=== PATIENT | male | born 1955 | race Caucasian/White ===

== ENCOUNTER → 2016-06-10 | Outpatient (CLI) | payer OTHER ==
[~2016-06-10] MED LIST: AMB10 PO; ATOR-22 PO; FLUO20CA35 PO
[2016-06-10 12:58] LABS: ESTIMATED AVERAGE GLUCOSE 123 mg/dl; HA1C FLAG Normal (Normal)
[2016-06-10 15:10] LABS: BLOOD UREA NITROGEN 16 mg/dl (7-18); BUN/CREATININE RATIO 13.1 (10-20); CARBON DIOXIDE 27 mmol/L (21-32); CHLORIDE 101 mmol/L (98-107); GLUCOSE 115 mg/dl (70-99); POTASSIUM 3.9 mmol/L (3.5-5.1); SODIUM 138 mmol/L (136-145)
[2016-06-10 15:13] LABS: ALB/GLOB RATIO 1.1 (0.9-2); ALKALINE PHOSPHATASE 100 U/L (45-117); ALT/SGPT 13 U/L (12-78); AST/SGOT 11 U/L (15-37); CHOLESTEROL 170 mg/dl (0-200); CHOLESTEROL/HDL RATIO 5.2; HDL CHOLESTEROL 33 mg/dl; LDL CHOLESTEROL CALCULATED 107 mg/dl; TRIGLYCERIDES 151 mg/dl (0-150); VERY LOW DENSITY LIPOPROT CALC 30 mg/dl
== END | disposition home or self-care (01) ==
LOC: C.LABPVFM 07:34
PROVIDERS: ATTEND Family Medicine
DX: E78.5 Hyperlipidemia, unspecified (principal); I10 Essential (primary) hypertension; R73.01 Impaired fasting glucose; F41.8 Other specified anxiety disorders

== ENCOUNTER → 2016-06-14 | Outpatient (CLI) | payer OTHER ==
--- NOTE | 2016-06-14 14:49 | DIAGNOSTIC IMAGING REPORT ---
LUMBAR SPINE 5 VIEWS HISTORY: Pain FINDINGS: considerable degenerative change throughout the entire lumbar region. Vacuum discs are present at L5-S1. Degenerative change of the vertebral endplates. No evidence for compression deformity. Mild levoscoliosis. COMPARISON: None. IMPRESSION: Significant to severe degenerative change of the entire lumbar region. No acute compression deformity. Electronically signed by: Adiel Cid M.D. 06/14/2016 2:47 PM Dictated Date/Time: 06/14/2016 2:46 PM
== END | disposition home or self-care (01) ==
LOC: C.RADPV 14:38
PROVIDERS: ATTEND Family Medicine
DX: M54.9 Dorsalgia, unspecified (principal)

== ENCOUNTER → 2016-12-09 | Outpatient (CLI) | payer OTHER ==
[2016-12-09 13:19] LABS: ALT/SGPT 14 U/L (12-78); BLOOD UREA NITROGEN 14 mg/dl (7-18); BUN/CREATININE RATIO 12.9 (10-20); CALCIUM 8.7 mg/dl (8.5-10.1); CARBON DIOXIDE 29 mmol/L (21-32); CHLORIDE 103 mmol/L (98-107); CHOLESTEROL 155 mg/dl (0-200); GLUCOSE 110 mg/dl (70-99); POTASSIUM 3.6 mmol/L (3.5-5.1); SODIUM 139 mmol/L (136-145); TRIGLYCERIDES 161 mg/dl (0-150); VERY LOW DENSITY LIPOPROT CALC 32 mg/dl
[2016-12-09 13:22] LABS: ALKALINE PHOSPHATASE 104 U/L (45-117); AST/SGOT 12 U/L (15-37); CHOLESTEROL/HDL RATIO 4.4; HDL CHOLESTEROL 35 mg/dl; LDL CHOLESTEROL CALCULATED 88 mg/dl
== END | disposition home or self-care (01) ==
LOC: C.LABPVFM 08:21
PROVIDERS: ATTEND Family Medicine
DX: E78.5 Hyperlipidemia, unspecified (principal); R73.01 Impaired fasting glucose; F41.8 Other specified anxiety disorders

== ENCOUNTER 2018-06-09 07:48 | Inpatient (IN) ==
--- NOTE | 2018-05-27 09:22 | Anesthesiology Consultation ---
Date of Service May 27, 2018 Assessment & Plan (1) Encounter for pre-operative examination: Plan: -*POSSIBLE DIFFICULT INTUBATION BASED ON ANATOMY* Chart Review Chart Review: Acceptable Risk for Surgery and Patient seen in Pre Admission Testing Teaching & Discussion Instructed NPO after midnight before surgery, except medications with 15 cc of water. Medication instructions provided according to the PAT guidelines. History Surgery Operation Date: 06/09/18 09:50 Proposed Procedures p Left Robotic Laparoscopic Assisted Radical Nephrectomy and Nephrouretectomy - Rio Chou II, DO Height/Weight Height: 5 ft 7.5 in Weight: 117.9 kg Allergies Allergy/AdvReac Type Severity Reaction Status Date / Time No Known Allergies Allergy Mild Verified 04/06/18 09:03 Medications Home Medications Medication Instructions Recorded Confirmed Last Taken fluoxetine 20 mg PO QAM 03/19/18 05/25/18 04/06/18 07:30 simvastatin 20 mg PO DAILY 03/24/18 05/25/18 04/06/18 07:30 triamterene-hydrochlorothiazid 1 tab PO DAILY 03/24/18 05/25/18 04/05/18 08:00 Past Medical History Medical History Anxiety Hyperlipidemia Hypertension Morbid obesity Pulmonary emphysema Pulmonary nodules PCP MONITORING Sleep apnea CPAP Transitional cell carcinoma of kidney Past Family History Family History Aunt Family history of diabetes mellitus Past Surgical History Surgical History History of colonoscopy 2017 History of cystoscopy RECENT 04/06/18 History of herniorrhaphy CHILD Past Anesthesia History No Hx of Anesthesia Complications and No Family Hx of Anesthesia Complications History of PONV No Motion Sickness Screening History of Motion Sickness: No Social History Smoking Status: Light tobacco smoker tobacco type: cigarettes Smoking cigarettes per day: 4 CIGS PER DAY X SEVERAL YEARS Do You Dip or Chew Tobacco: No Hx Alcohol Use: No Alcohol type: hard liquor alcohol intake frequency: holidays/special occasions only Alcohol Intake Frequency Comment: 0 Hx Substance Use: No substance use type: does not use Exercise / Class Metabolic Activity II 4-5 Yardwork/Stairs/Walk up hill (no CP or SOB with stairs, does full flight daily) Review of Systems Pt denies any recent chest pain, shortness of breath, palpitations, cough, fever or URI. Physical Exam Vital Signs BP: 163/76 (pt is visibly anxious, did take HTN med this AM) P: 79bpm SPO2: 98% RA T: 98.6 F R: 16 ENMT Mouth: + poor dentition, + chipped teeth and + small oral opening; no dental restorations and no loose teeth Thyromental Distance: > or= 3.5 Finger Breadths (3.5) Mallampati Class: III Neck + thick neck; neck extension not limited Respiratory normal respiratory effort Auscultation: lungs clear to auscultation bilaterally Cardiovascular Rate/Rhythm: regular rate and regular rhythm Heart Sounds: no murmur Vessels: no carotid bruit Extremities: no edema Testing Electrocardiogram Date: 03/24/18 Findings: + SB @ (58) Chest X-Ray Date: 05/05/18 Minimally progressive micronodularity throughout both hemithoraces. Continued close CT follow-up is recommended to exclude developing metastatic change. Stress Test Date: 05/29/18 Type: exercise Nondiagnostic exercise stress EKG as target heart rate was not attained (pt reached 72% MPHR reached). Hypertensive response to exercise. Poor exercise tolerance. No arrhythmia; no chest pain reported. Other Testing CT LUNG 01/15/18 Cardiomegaly and emphysema. There is no airspace consolidation or pleural effusion. There are 3 small pulmonary nodules measuring up to 4 mm. Laboratory Results 05/27/18 09:58 05/27/18 10:58 Blood Type A Positive 05/27/18 09:58 Antibody Screen NEGATIVE 05/27/18 09:58 Urine Color Yellow 05/27/18 09:05 Urine Appearance Clear (Clear) 05/27/18 09:05 Urine pH >= 9.0 (4.5-7.5) H 05/27/18 09:05 Ur Specific [place] 1.012 (1.000-1.030) 05/27/18 09:05 Urine Protein Negative (Negative) 05/27/18 09:05 Urine Glucose (UA) Negative (Negative) 05/27/18 09:05 Urine Ketones Negative (Negative) 05/27/18 09:05 Urine Nitrite Negative (Negative) 05/27/18 09:05 Ur Leukocyte Esterase Negative (Negative) 05/27/18 09:05 02/06/19 09:05 Urine Culture - Final Urine,Clean Catch No growth - less than 1,000 colonies/mL.
--- NOTE | 2018-05-27 09:23 | PAT Medication Instructions ---
Medication Instructions Date of Service May 27, 2018 Home Medications Medication Instructions Recorded tamsulosin [Flomax] 0.4 mg PO DAILY #30 cap 04/06/18 fluoxetine 20 mg PO QAM simvastatin 20 mg PO DAILY triamterene-hydrochlorothiazide 1 tab PO DAILY DO NOT take the morning of surgery triamterene-hydrochlorothiazide 1 tab PO DAILY Take morning of surgery With a small sip of water, OTHERWISE NOTHING TO EAT OR DRINK AFTER MIDNIGHT: fluoxetine 20 mg PO QAM simvastatin 20 mg PO DAILY Other Notes If you have any questions please call us at [phone] or [phone] or [phone] or [phone]
[2018-05-27 10:19] LABS: Basophils # (auto) 0.03 K/uL (0-0.2); Basophils % (auto) 0.4 %; Eosinophils # (auto) 0.06 K/uL (0-0.5); Eosinophils % (auto) 0.8 %; Hematocrit (blood only) 43.2 % (42-52); Hemoglobin 14.2 g/dL (14.0-18.0); Immature Granulocytes # (auto) 0.01 K/uL (0.00-0.02); Immature Granulocytes % (auto) 0.1 %; Lymphocytes # (auto) 1.19 K/uL (1.2-3.4); Lymphocytes % (auto) 15.2 %; Mean Corpuscular Hgb Conc 32.9 g/dL (32-36); Mean Corpuscular Volume 93.7 fL (80-100); Monocytes # (auto) 0.53 K/uL (0.11-0.59); Monocytes % (auto) 6.8 %; Neutrophils # (auto) 6.03 K/uL (1.4-6.5); Neutrophils % (auto) 76.7 %; Platelet Count 262 K/uL (130-400); RDW Coefficient of Variation 13.7 % (11.5-14.5); RDW Standard Deviation 46.9 fL (36.4-46.3); Red Blood Count 4.61 M/uL (4.7-6.1); White Blood Count 7.85 K/uL (4.8-10.8)
[2018-05-27 10:20] LABS: Appearance Urine Clear (Clear); Bilirubin Urine Negative (Negative); Color Urine Yellow; Glucose Urine UA Negative (Negative); Ketones Urine Negative (Negative); Leukocyte Esterase Urine Negative (Negative); Nitrite Urine Negative (Negative); Protein Urine Negative (Negative); Specific Gravity Urine 1.012 (1.000-1.030); Urobilinogen Urine Negative (Negative); pH Urine >= 9.0 (4.5-7.5)
[2018-05-27 11:47] LABS: BUN Creatinine Ratio 12.4 (10-20); Calcium 9.6 mg/dl (8.5-10.1); Est GFR (African American) 75.7; Est GFR (Non-African American) 65.3
[~2018-06-09 07:48] MED LIST changes: -AMB10 PO; -ATOR-22 PO; +CEFAZOLIN 3000MG 65 ML IV SCH; -FLUO20CA35 PO; +LR 15ML/HR IV SCH
[2018-06-09] MEDS ORDERED: HYDROmorphone INJ 1 MG/ML SYRINGE IV PRN ×2 (08:45→08:51)
[2018-06-09] MEDS ORDERED: ATROPINE SULFATE 0.1 MG/ML 10ML SYR IV PRN ×2 (08:45→08:51)
[2018-06-09] MEDS ORDERED: fentaNYL citrate 100 MCG/2 ML VIAL IV PRN ×2 (08:45→08:51)
[2018-06-09] MEDS ORDERED: ePHEDrine sulfate 50 MG/ML AMP IV PRN ×2 (08:45→08:51)
[2018-06-09] MEDS ORDERED: ONDANSETRON INJ 2 MG/ML 2 ML VIAL IV PRN ×3 (08:45→17:44)
[2018-06-09] MEDS ORDERED: ACETAMINOPHEN 1000 MG/100 ML IV IV ONE (09:08)
[2018-06-09] MEDS ORDERED: PROPOFOL IV EMULSION 10 MG/ML 20 ML VIAL IV ONE (09:30)
[2018-06-09] MEDS ORDERED: DEXAMETHASONE SOD INJ 4 MG/ML VIAL ONE (09:30)
[2018-06-09] MEDS ORDERED: ONDANSETRON INJ 2 MG/ML 2 ML VIAL ONE (09:30)
[2018-06-09] MEDS ORDERED: LIDOCAINE HCL 2% 2 ML VIAL/AMP(20MG/ML) INFIL ONE (09:30)
[2018-06-09] MEDS ORDERED: KETOROLAC 30 MG/ML VIAL ONE (09:30)
[2018-06-09] MEDS ORDERED: MIDAZOLAM HCL 1 MG/ML 2ML VIAL ONE (09:30)
[2018-06-09] MEDS ORDERED: fentaNYL citrate 100 MCG/2 ML VIAL ONE ×2 (09:31→15:31)
[2018-06-09] MEDS ORDERED: KETAMINE HCL INJ 50 MG/ML 10 ML VIAL ONE (09:31)
[2018-06-09] MEDS ORDERED: HYDROmorphone INJ 2 MG/ML SYR/VIAL ONE (09:31)
[2018-06-09] MEDS ORDERED: SODIUM CHLORIDE 0.9% INJ 10 ML VIAL ONE (09:32)
--- NOTE | 2018-06-09 09:45 | History & Physical Bridge Note ---
Date of Service June 09, 2018 History & Physical Bridge Note I have examined the patient, reviewed the History & Physical and in the interval since the performance of the History & Physical I have noted the following changes of clinical significance: no changes noted
[2018-06-09] MEDS ORDERED: BUPIVACAINE 0.5 % 5 MG/1 ML MPF 30ML VIAL ONE (11:15)
[2018-06-09] MEDS ORDERED: GELATIN SPONGE SZ 100 ONE (11:15)
[2018-06-09] MEDS ORDERED: MANNITOL 25% 12.5 GM/50 ML VIAL IV ONE (11:20)
[2018-06-09] MEDS ORDERED: ePHEDrine sulfate 50 MG/ML AMP ONE (13:23)
[2018-06-09] MEDS ORDERED: SURGICEL ABSORB HEMOSTAT 2IN X 14IN TOP ONE ×2 (13:53→15:43)
[2018-06-09] MEDS ORDERED: SUCCINYLCHOLINE CHLORIDE 20 MG/ML 10 ML VIAL ONE (15:26)
--- NOTE | 2018-06-09 16:30 | Post Operative Brief Note ---
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 I was immediately available: during the entire case. Back up surgeon: was not required during procedure.
[2018-06-09] MEDS ORDERED: ROCURONIUM BROMIDE 10 MG/ML 5 ML VIAL ONE (16:51)
[2018-06-09] MEDS ORDERED: GLYCOPYRROLATE 0.2 MG/ML VIAL ONE (16:51)
[2018-06-09] MEDS ORDERED: NEOSTIGMINE METHYLSULFATE 5 MG/5 ML SYR ONE (16:51)
[2018-06-09 17:15] LABS: Basophils # (auto) 0.02 K/uL (0-0.2); Basophils % (auto) 0.1 %; Eosinophils # (auto) 0.01 K/uL (0-0.5); Eosinophils % (auto) 0.1 %; Hematocrit (blood only) 43.2 % (42-52); Immature Granulocytes # (auto) 0.07 K/uL (0.00-0.02); Immature Granulocytes % (auto) 0.4 %; Lymphocytes # (auto) 0.59 K/uL (1.2-3.4); Lymphocytes % (auto) 3.3 %; Mean Corpuscular Volume 94.3 fL (80-100); Mean Platelet Volume 10.4 fL (7.4-10.4); Monocytes # (auto) 0.22 K/uL (0.11-0.59); Monocytes % (auto) 1.2 %; Neutrophils # (auto) 16.86 K/uL (1.4-6.5); Neutrophils % (auto) 94.9 %; Platelet Count 246 K/uL (130-400); RDW Coefficient of Variation 13.6 % (11.5-14.5); RDW Standard Deviation 47.1 fL (36.4-46.3); Red Blood Count 4.58 M/uL (4.7-6.1); White Blood Count 17.77 K/uL (4.8-10.8)
--- NOTE | 2018-06-09 17:28 | Anesthesiology Progress Note ---
Date of Service June 09, 2018 Anesthesia Post Procedure Vital Signs Vital Signs: Temp Pulse Pulse Resp BP Pulse Ox 06/09/18 17:20 36.6 C 67 24 152/73 H 96 06/09/18 17:10 72 24 158/80 H 97 06/09/18 17:00 74 20 162/70 H 100 06/09/18 16:50 81 18 138/83 99 06/09/18 16:44 36.2 C L 84 17 169/81 H 100 06/09/18 08:20 36.4 C L 64 20 162/81 H 95 Notes Mental Status: alert / awake / arousable Patient Amnestic to Procedure: Yes Nausea / Vomiting: adequately controlled Pain: adequately controlled Airway Patency, RR, SpO2: stable & adequate BP & HR: stable & adequate Hydration State: stable & adequate Anesthetic Complications: no major complications apparent
--- NOTE | 2018-06-09 17:32 | Operative Report ---
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 Risks and benefits discussed at length. Description of Procedure The patient was brought to the operative suite and placed under general endotracheal intubation anesthesia in the supine position. The patient was transferred to the lateral position with the operative side up. At this point, the patient prepped and draped in the usual sterile fashion and a timeout was completed. Preoperative antibiotics of Ancef 3 grams had been given. EASTON's and SCD's were placed on the patient's lower extremities. A catheter was placed using sterile technique. With the time out completed the patient was flexed and the skin was marked. A small incision was made into the skin and subcutaneous tissues. A Varess needle was selected and placed. The needle was easily moved and it was irrigated and aspirated without any issues or concerns for placement. Insufflation commenced. Once insufflated, A camera port was placed. The cavity was insufflated to 15 mmHG. A laparoscopic camera was placed and the abdominal cavity inspected. No concerning features were noted. At this point, the skin was marked for port placement and 8mm working ports were placed. The skin was anesthetized down to fascia and an approx 1cm incision was made to place the 2 x 8mm ports. A 12mm assistant maintenance manager ports were also placed in similar fashion under direct visualization. The robot was positioned and docked. The camera was placed and all trocars were positioned under direct visualization. ANH Castillo was integral in port placement, camera utilization , and docking procedure. They remained in sterile attire and then proceeded to assist the remainder of the case. Dr. Javon Hogue was readily available for assistance during zheng portions of the proceeding procedure. At this point, I transitioned to the robotic console. The colon was mobilized medially to expose the retroperitoneum and the area assessed. Adhesions were freed to allow mobilization. A notable amount of adhesions were noted from the colon and were freed. These were dissected with blunt technique. Cautery was used to assist dissection and control bleeding. The retroperitoneal fat was assessed. The ureter and gonadal vein were identified. The ureter was isolated and dissection was taken superiorly. This was followed to the renal pelvis. The Renal Artery and Vein were then cleaned and exposed. The kidney was then further mobilized. The gonadal vein was in a difficult position and restricted access to the renal artery. Due to this, the gonadal vein was stapled with the EndoGIA stapler with a vascular staple load. The stapler was then placed across the renal vein and artery. This was then stapled and cut. The stumps were assessed and found to be clean without bleeding. The kidney was full assessed, mobilized, and all lateral, posterior, and superior attachments were freed. Surgicel hemostatic agent sheets were placed on the vessel stumps and on the perinephric tissue superiorly. No major bleeding or other issues were discovered. The dissection then was carried down along the ureter. The gonadal stump was ligated and cut. The ureter was freed to the crossing on the iliac vessels. Due to mobility, it was decided to undock the robot, place an additional 8 mm port laterally under direct visualization, and reposition to better access the pelvis. The ureter was dissected down to the insertion in the bladder muscularture. At this point, two hemolock clips were placed on the ureter. The ureter was dissected further with the clips aiding in retraction. The ureter was dissected clear and taken down into its insertion point. Under gentle retraction, the ureter was cut at the opening into the bladder. Bleeding was controlled with cautery. The area was assessed and no major bleeding or leakage was discovered. The specimen was then fully mobilized and freed. A Flat drain was placed through the lateral robot arm and the port was removed. It was positioned in the gutter along the lateral wall and down posterior to the bladder. This was secured with a nylon 3-0 suture. The entire dissection space was inspected one final time. No bleeding or injuries or areas of concern were noted. No tumor, lymph nodes, or other concerning features were noted. At this point, the robot was undocked and moved away from the patient. The port sites were all assessed laparoscopically. The two 12 mm ports in the perimedian region were further anesthestized. These incisions were then connected to create a perimedian incision which was opened further exposing fascia which was then opened in order to removed the specimen. The anterior and posterior rectus sheath fascia were opened with the rectus muscles gently retracted medially. The specimen was sent for pathologic analysis. All counts were correct x 2 and no major bleeding or other issues were discovered. A running 1-0 Vicryl suture was used to close the peritoneum and posterior sheath. A 1-0 PDS suture was used to close the anterior rectus sheath fascia. A vicryl suture was used to close the subcutaneous fat in a running fashion. The skin at each site was closed with a running Monocryl suture. The area was cleaned and glue placed on each incision. The patient was cleaned and bandaged. He was moved back into the supine position The patient was cleaned, aroused from anesthesia, and transferred to the pacu in stable condition having tolerated the procedure well with no complications. I was present and participated in all aspects of the procedure. All counts were correct x 2. Kenneth and ANH Hawkins were critical in the portions as mentioned above and during closing. I attest to the content of the Intraoperative Record and any orders documented therein. Any exceptions are noted below.
[2018-06-09 17:33] LABS: BUN Creatinine Ratio 13.9 (10-20); Calcium 8.3 mg/dl (8.5-10.1); Creatinine Clr Calc Pharmacy 63.2 ml/min; Est GFR (African American) 56.4; Est GFR (Non-African American) 48.7; Potassium 3.7 mmol/L (3.5-5.1)
[2018-06-09 17:36] LABS: Mean Corpuscular Hgb Conc 32.4 g/dL (32-36)
[2018-06-09] MEDS ORDERED: MoRPHine SULFATE 4 MG/ML 1 ML CARP\\VIAL IV PRN (17:44)
[2018-06-09] MEDS ORDERED: ACETAMINOPHEN 1,000 MG/100 ML VIAL IV PRN (17:44)
[2018-06-09] MEDS: LACTATED RINGER'S 1,000 ML IV SCH (18:21)
[2018-06-09] MEDS: OXYCODONE HCL IR 5 MG TAB (IMMEDIATE RELEASE) PO PRN (19:33)
[2018-06-09] MEDS: CEFAZOLIN 2000MG 2,000 MG/15 ML SYR IV SCH (20:16)
[2018-06-09] MEDS: FAMOTIDINE 20 MG in SYRINGE 3 ML IV SCH (20:16)
[2018-06-09] MEDS: HEPARIN SOD 5,000 UNIT/0.5 ML VIAL SQ SCH (20:27)
[2018-06-09] MEDS: DOCUSATE SODIUM 100 MG CAP PO SCH (20:31)
[2018-06-10] MEDS: LACTATED RINGER'S 1,000 ML IV SCH ×3 (01:17→17:09)
[2018-06-10] MEDS: OXYCODONE HCL IR 5 MG TAB (IMMEDIATE RELEASE) PO PRN ×4 (01:31→23:29)
[2018-06-10] MEDS: CEFAZOLIN 2000MG 2,000 MG/15 ML SYR IV SCH ×2 (03:18→12:21)
[2018-06-10 07:54] LABS: Basophils # (auto) 0.01 K/uL (0-0.2); Basophils % (auto) 0.1 %; Eosinophils # (auto) 0.01 K/uL (0-0.5); Eosinophils % (auto) 0.1 %; Hematocrit (blood only) 38.4 % (42-52); Hemoglobin 12.5 g/dL (14.0-18.0); Immature Granulocytes # (auto) 0.04 K/uL (0.00-0.02); Immature Granulocytes % (auto) 0.3 %; Lymphocytes # (auto) 0.87 K/uL (1.2-3.4); Lymphocytes % (auto) 6.7 %; Mean Corpuscular Hgb Conc 32.6 g/dL (32-36); Mean Platelet Volume 10.5 fL (7.4-10.4); Monocytes # (auto) 0.96 K/uL (0.11-0.59); Monocytes % (auto) 7.4 %; Neutrophils # (auto) 11.16 K/uL (1.4-6.5); Neutrophils % (auto) 85.4 %; Platelet Count 206 K/uL (130-400); RDW Coefficient of Variation 13.4 % (11.5-14.5); RDW Standard Deviation 46.5 fL (36.4-46.3); Red Blood Count 4.04 M/uL (4.7-6.1); White Blood Count 13.05 K/uL (4.8-10.8)
[2018-06-10 08:06] LABS: BUN Creatinine Ratio 13.7 (10-20); Creatinine Clr Calc Pharmacy 63.3 ml/min; Est GFR (African American) 56.9; Est GFR (Non-African American) 49.1; Potassium 3.7 mmol/L (3.5-5.1)
[2018-06-10] MEDS: FAMOTIDINE 20 MG in SYRINGE 3 ML IV SCH (08:18)
[2018-06-10] MEDS: TRIAMTERENE/HCTZ 37.5/25MG TAB PO SCH (08:20)
[2018-06-10] MEDS: SIMVASTATIN 20 MG TAB PO SCH (08:21)
[2018-06-10] MEDS: FLUOXETINE HCL 20 MG CAP PO SCH (08:21)
[2018-06-10] MEDS: HEPARIN SOD 5,000 UNIT/0.5 ML VIAL SQ SCH ×2 (08:26→20:59)
[2018-06-10] MEDS: DOCUSATE SODIUM 100 MG CAP PO SCH ×2 (08:44→21:03)
--- NOTE | 2018-06-10 09:11 | Urology Progress Note ---
Date of Service June 10, 2018 Assessment & Plan (1) Left renal mass: 62yo M s/p Left Robotic Laparoscopic Assisted Radical Nephrouretectomy VSS, afebrile. Doing very well this AM No major issues overnight, pain controlled Labs reviewed - Cr slightly elevated as expected, stable. - H/H stable Discussed with krystal Bill to increase diet to regular. Maintain CHET, likely d/c tomorrow. Maintain hsieh catheter. Continue IVFs for now. Encourage ambulation and use of IS. Pt progressing very well, likely will d/c home tomorrow. Attending Note: doing well. OOB and ambulating. Tolerating diet. Low CHET output. Tolerating catheter. Subjective 62yo M s/p POD #1 p Left Robotic Laparoscopic Assisted Radical Nephrouretectomy. Patient doing very well this AM. Denies major issues overnight. Having some soreness but overall pain controlled with PO options. Tolerated clear diet, states he is hungry. Denies f/c/n/v. Hsieh intact, draining clear yellow. CHET with minimal output overnight. Review of Systems All systems reviewed & are unremarkable except as noted in HPI & below Physical Exam 2 Vital Signs (Past 24 Hours): Last Vital Signs Temp 36.4 C L 06/10/18 07:58 Pulse 71 06/10/18 07:58 Resp 16 06/10/18 07:58 BP 139/78 06/10/18 07:58 Pulse Ox 97 06/10/18 07:58 Physical Exam: A&Ox3 RRR abd soft, nondistended. Abdominal incisions well approximated, no drainage, redness. CHTE draining small amount bloody. hsieh draining clear yellow Results & Data Laboratory Results Laboratory Results - last 48 hr 06/09/18 06/09/18 06/10/18 17:06 17:06 07:24 WBC 17.77 H 13.05 H RBC 4.58 L 4.04 L Hgb 14.0 12.5 L Hct 43.2 38.4 L MCV 94.3 95.0 MCH 30.6 30.9 MCHC 32.4 32.6 RDW Std Deviation 47.1 H 46.5 H RDW Coeff of Kate 13.6 13.4 Plt Count 246 206 MPV 10.4 10.5 H Immature Gran % (Auto) 0.4 0.3 Neut % (Auto) 94.9 85.4 Lymph % (Auto) 3.3 6.7 Treasure % (Auto) 1.2 7.4 Eos % (Auto) 0.1 0.1 Baso % (Auto) 0.1 0.1 Immature Gran # (Auto) 0.07 H 0.04 H Neut # (Auto) 16.86 H 11.16 H Lymph # (Auto) 0.59 L 0.87 L Treasure # (Auto) 0.22 0.96 H Eos # (Auto) 0.01 0.01 Baso # (Auto) 0.02 0.01 Sodium 135 L Potassium 3.7 Chloride 103 Carbon Dioxide 26 Anion Gap 6.0 BUN 21 H Creatinine 1.53 H Est Cr Clr Drug Dosing 63.2 Est GFR ( Amer) 56.4 Est GFR (Non-Af Amer) 48.7 BUN/Creatinine Ratio 13.9 Glucose 141 H Calcium 8.3 L 06/10/18 07:24 WBC RBC Hgb Hct MCV MCH MCHC RDW Std Deviation RDW Coeff of Kate Plt Count MPV Immature Gran % (Auto) Neut % (Auto) Lymph % (Auto) Treasure % (Auto) Eos % (Auto) Baso % (Auto) Immature Gran # (Auto) Neut # (Auto) Lymph # (Auto) Treasure # (Auto) Eos # (Auto) Baso # (Auto) Sodium 133 L Potassium 3.7 Chloride 103 Carbon Dioxide 22 Anion Gap 8.0 BUN 21 H Creatinine 1.52 H Est Cr Clr Drug Dosing 63.3 Est GFR ( Amer) 56.9 Est GFR (Non-Af Amer) 49.1 BUN/Creatinine Ratio 13.7 Glucose 98 Calcium 8.0 L
--- NOTE | 2018-06-10 10:28 | Anesthesiology Progress Note ---
Date of Service June 10, 2018 Anesthesia Post Procedure Vital Signs Vital Signs: Temp Pulse Pulse Resp BP Pulse Ox 06/10/18 07:58 36.4 C L 71 16 139/78 97 06/10/18 03:15 37.4 C 70 16 145/76 H 97 06/10/18 00:08 37.5 C 77 18 126/75 98 06/09/18 20:30 36.4 C L 81 16 148/84 H 98 06/09/18 19:30 37.4 C 70 18 129/76 94 06/09/18 18:30 86 16 114/72 95 06/09/18 18:00 36.6 C 70 18 129/75 93 06/09/18 17:30 36.7 C 74 16 147/74 H 97 06/09/18 17:20 36.6 C 67 24 152/73 H 96 06/09/18 17:10 72 24 158/80 H 97 06/09/18 17:00 74 20 162/70 H 100 06/09/18 16:50 81 18 138/83 99 06/09/18 16:44 36.2 C L 84 17 169/81 H 100 Pain Intensity Left Abdomen: Pain Intensity: 4 Notes Mental Status: alert / awake / arousable Patient Amnestic to Procedure: Yes Nausea / Vomiting: adequately controlled Pain: adequately controlled Airway Patency, RR, SpO2: stable & adequate BP & HR: stable & adequate Hydration State: stable & adequate Anesthetic Complications: no major complications apparent and Pt Satisfied with anesthetic care
[2018-06-10] MEDS: FAMOTIDINE 20 MG TAB PO SCH (20:58)
[2018-06-11] MEDS: LACTATED RINGER'S 1,000 ML IV SCH (01:11)
[2018-06-11 07:55] LABS: Basophils # (auto) 0.02 K/uL (0-0.2); Basophils % (auto) 0.2 %; Eosinophils # (auto) 0.04 K/uL (0-0.5); Eosinophils % (auto) 0.4 %; Hematocrit (blood only) 35.8 % (42-52); Hemoglobin 11.7 g/dL (14.0-18.0); Immature Granulocytes # (auto) 0.02 K/uL (0.00-0.02); Immature Granulocytes % (auto) 0.2 %; Lymphocytes # (auto) 1.04 K/uL (1.2-3.4); Lymphocytes % (auto) 10.7 %; Mean Corpuscular Hgb Conc 32.7 g/dL (32-36); Mean Corpuscular Volume 93.5 fL (80-100); Mean Platelet Volume 10.2 fL (7.4-10.4); Monocytes # (auto) 0.75 K/uL (0.11-0.59); Monocytes % (auto) 7.7 %; Neutrophils # (auto) 7.85 K/uL (1.4-6.5); Neutrophils % (auto) 80.8 %; Platelet Count 202 K/uL (130-400); RDW Coefficient of Variation 13.5 % (11.5-14.5); RDW Standard Deviation 46.1 fL (36.4-46.3); Red Blood Count 3.83 M/uL (4.7-6.1); White Blood Count 9.72 K/uL (4.8-10.8)
[2018-06-11 08:25] LABS: BUN Creatinine Ratio 10.8 (10-20); Est GFR (Non-African American) 42.3; Potassium 3.7 mmol/L (3.5-5.1)
[2018-06-11] MEDS: HEPARIN SOD 5,000 UNIT/0.5 ML VIAL SQ SCH (08:54)
[2018-06-11] MEDS: SIMVASTATIN 20 MG TAB PO SCH (08:55)
[2018-06-11] MEDS: FAMOTIDINE 20 MG TAB PO SCH (08:55)
[2018-06-11] MEDS: TRIAMTERENE/HCTZ 37.5/25MG TAB PO SCH (08:55)
[2018-06-11] MEDS: FLUOXETINE HCL 20 MG CAP PO SCH (08:55)
[2018-06-11] MEDS: DOCUSATE SODIUM 100 MG CAP PO SCH (09:37)
[2018-06-11] MEDS: OXYCODONE HCL IR 5 MG TAB (IMMEDIATE RELEASE) PO PRN (10:24)
--- NOTE | 2018-06-11 13:12 | Urology Progress Note ---
Date of Service June 11, 2018 Assessment & Plan (1) Left renal mass: 62yo M s/p Left Robotic Laparoscopic Assisted Radical Nephrouretectomy VSS, temp slightly elevated not unexpected. Doing very well this AM, ready to go home No major issues overnight, pain controlled with oxyIR Labs reviewed - Cr elevated to 1.52- 1.72 today as expected - H/H stable Okay to d/c marc prior to discharge. Maintain hsieh catheter, voiding trial to be arranged by our offfice. Continue use of IS at home . Dr. Chou also in to see patient today. All questions answered. Family at bedside. Pt progressing well, ready to d/c home. Subjective 62yo M s/p POD 2 p Left Robotic Laparoscopic Assisted Radical Nephrouretectomy. Patient doing well today, sitting up in chair. Denies major issues overnight. Has been ambulating well. tolerating regular diet, has not passed gas as of yet. Denies f/c/n/v. Hsieh intact, draining clear yellow. MARC with minimal output overnight. Physical Exam 2 Vital Signs (Past 24 Hours): Last Vital Signs Temp 37.8 C H 06/11/18 07:04 Pulse 76 06/11/18 07:04 Resp 19 06/11/18 07:04 BP 149/71 H 06/11/18 07:04 Pulse Ox 91 06/11/18 07:04 Physical Exam: A&Ox3 RRR abd soft, incisions tender. incisions well approximated, no drainage. hsieh draining clear yellow Results & Data Laboratory Results Laboratory Results - last 48 hr 06/09/18 06/09/18 06/10/18 17:06 17:06 07:24 WBC 17.77 H 13.05 H RBC 4.58 L 4.04 L Hgb 14.0 12.5 L Hct 43.2 38.4 L MCV 94.3 95.0 MCH 30.6 30.9 MCHC 32.4 32.6 RDW Std Deviation 47.1 H 46.5 H RDW Coeff of Kate 13.6 13.4 Plt Count 246 206 MPV 10.4 10.5 H Immature Gran % (Auto) 0.4 0.3 Neut % (Auto) 94.9 85.4 Lymph % (Auto) 3.3 6.7 Ransom % (Auto) 1.2 7.4 Eos % (Auto) 0.1 0.1 Baso % (Auto) 0.1 0.1 Immature Gran # (Auto) 0.07 H 0.04 H Neut # (Auto) 16.86 H 11.16 H Lymph # (Auto) 0.59 L 0.87 L Ransom # (Auto) 0.22 0.96 H Eos # (Auto) 0.01 0.01 Baso # (Auto) 0.02 0.01 Sodium 135 L Potassium 3.7 Chloride 103 Carbon Dioxide 26 Anion Gap 6.0 BUN 21 H Creatinine 1.53 H Est Cr Clr Drug Dosing 63.2 Est GFR ( Amer) 56.4 Est GFR (Non-Af Amer) 48.7 BUN/Creatinine Ratio 13.9 Glucose 141 H Calcium 8.3 L 06/10/18 06/11/18 06/11/18 07:24 07:33 07:33 WBC 9.72 RBC 3.83 L Hgb 11.7 L Hct 35.8 L MCV 93.5 MCH 30.5 MCHC 32.7 RDW Std Deviation 46.1 RDW Coeff of Kate 13.5 Plt Count 202 MPV 10.2 Immature Gran % (Auto) 0.2 Neut % (Auto) 80.8 Lymph % (Auto) 10.7 Ransom % (Auto) 7.7 Eos % (Auto) 0.4 Baso % (Auto) 0.2 Immature Gran # (Auto) 0.02 Neut # (Auto) 7.85 H Lymph # (Auto) 1.04 L Ransom # (Auto) 0.75 H Eos # (Auto) 0.04 Baso # (Auto) 0.02 Sodium 133 L 135 L Potassium 3.7 3.7 Chloride 103 103 Carbon Dioxide 22 27 Anion Gap 8.0 5.0 BUN 21 H 19 H Creatinine 1.52 H 1.72 H Est Cr Clr Drug Dosing 63.3 56.0 Est GFR ( Amer) 56.9 49.0 Est GFR (Non-Af Amer) 49.1 42.3 BUN/Creatinine Ratio 13.7 10.8 Glucose 98 101 H Calcium 8.0 L 8.0 L
--- NOTE | 2018-06-19 12:10 | Discharge Summary ---
Date of Service June 19, 2018 Admission HPI Per Admitting Provider See Admission H&P Admission Exam Per Admitting Provider See H&P Principal Diagnosis [place] UCC Discharge Exam Constitutional + obese ENMT Mouth: + poor dentition, + chipped teeth and + small oral opening; no dental restorations and no loose teeth Mallampati Class: III Neck normal visual inspection and + thick neck; neck extension not limited Respiratory normal respiratory effort Auscultation: lungs clear to auscultation bilaterally Cardiovascular Rate/Rhythm: regular rate and regular rhythm Heart Sounds: no murmur Vessels: no carotid bruit Extremities: no edema Psychiatric Orientation: alert and oriented x 3 Discharge Data Allergies Allergy/AdvReac Type Severity Reaction Status Date / Time No Known Allergies Allergy Mild Verified 06/09/18 08:12 Procedures Performed Operation Date: 06/09/18 09:50 Actual Procedures p Left Robotic Laparoscopic Assisted Radical Nephrouretectomy(Left) - Rio Chou II, DO Hospital Course (1) Left renal mass: 62yo M s/p Left Robotic Laparoscopic Assisted Radical Nephrouretectomy VSS, temp slightly elevated not unexpected. Doing very well this AM, ready to go home No major issues overnight, pain controlled with oxyIR Labs reviewed - Cr elevated to 1.52- 1.72 today as expected - H/H stable Okay to d/c marc prior to discharge. Maintain hsieh catheter, voiding trial to be arranged by our offfice. Continue use of IS at home . Dr. Chou also in to see patient today. All questions answered. Family at bedside. Pt progressing well, ready to d/c home. 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 Do not pick at surgical glue. No tub baths/soaking Sexual Activity: Wait until after follow-up appointment Exercise/Sports: Rest today and Wait until after follow-up appointment Driving/Machine Use: Resume 1 day after discharge Driving/Machine Use Comment: Please do not drive while taking perscription pain medication. Non-emergency contact: Urologist Call non-emergency contact if: you have any medication questions, your pain is not controlled, your pain is concerning for you, your temperature is above 101, your wound has increased redness, your wound has increased drainage and your wound pain has increased Follow-up/Referrals: Ileana Torres MD [Primary Care Provider] - Diet: Regular Addtl Provider Instructions: Please feel free to contact our office with any questions, concerns or need to change your appointment time at [phone]. Please do not drink alcohol or drive while taking prescription pain medication. - We recommend you take a stool softener (colace) twice a day for the first two weeks to prevent straining. - Okay to take as needed after that timeframe. Please clean around your hsieh catheter insertion site twice a day with mild soap (dial or dove) and fresh washcloth. Your catheter removal appointment is scheduled for 06/16 at 11:30AM. Prescriptions: New oxycodone-acetaminophen [Percocet] 5-325 mg tablet 2 tab PO TID PRN (Reason: pain) Qty: 20 RF: 0 docusate sodium [Colace] 100 mg capsule 100 mg PO TID Qty: 60 RF: 0 Continued fluoxetine 20 mg Capsule 20 mg PO QAM RF: 0 simvastatin 20 mg Tablet 20 mg PO DAILY RF: 0 triamterene-hydrochlorothiazid 37.5-25 mg Tablet 1 tab PO DAILY RF: 0 Stand-Alone Forms: [facility]/Other Patient Handouts: Nephroureterectomy Laparoscopic, Catheter Indwelling Urinary Dc, Leg Bag Care Dc Discharge Orders: Discharge Order (Routine); Ordered 06/11/18 Ordered By: Melany Hawkins Admission Data Admit Date/Time: 06/09/18 16:03 Attending Provider: Rio Chou II Admit Provider: Rio Chou II Primary Care Provider: Ileana Torres Other Providers: Jose López ; [address] ; Sherman Guerra ; Lindsey Muse ; Edmar Benson ; Melany Hawkins ; April Wells ; Raymundo Calhoun Service: Surgical Services Other Interventions: Discharge Summary Assessment (RN) Last Done: 06/11/18 13:13 DC Date/Time DO NOT enter until pt leaves facility: 06/11/18 14:00
== END 2018-06-11 14:00 | disposition home or self-care (01) | DRG 658 ==
LOC: ASU 07:48 → 3W 16:03
DX: I10 Essential (primary) hypertension; E66.9 Obesity, unspecified; E78.5 Hyperlipidemia, unspecified; Z80.8 Family history of malignant neoplasm of other organs or systems; G47.30 Sleep apnea, unspecified; Z68.35 Body mass index [BMI] 35.0-35.9, adult; N40.0 Benign prostatic hyperplasia without lower urinary tract symptoms; Z79.899 Other long term (current) drug therapy; F17.210 Nicotine dependence, cigarettes, uncomplicated; F41.8 Other specified anxiety disorders; C64.2 Malignant neoplasm of left kidney, except renal pelvis

== ENCOUNTER 2022-10-01 16:39 | Inpatient (IN) ==
[2022-10-01] MEDS ORDERED: SODIUM CHLORIDE 0.9% 500 ML IV ONE (17:13)
--- NOTE | 2022-10-01 17:13 | Emergency Department Note ---
Impression & Plan Acute hyponatremia, AMS (altered mental status), Weakness ED Provider Note NAME: RADHA REED AGE: 66 SEX: M : 1955 ARRIVES VIA: Walk-In INFORMANT: Patient ED PROVIDER(S): Oleg Muhammad DO CHIEF COMPLAINT: weakness HPI: Patient is a 66-year-old male who presents ER for weakness. He notes this has been present for the past several days. He has been having some nausea and trouble urinating since this past Friday. He notes he feels like he has to really force himself to urinate. Once he is able to start his stream and feels as though he completely empties. He denies any headache or change in vision. No chest pain or shortness of breath. He does note that he feels a little foggy. No dysuria urgency or frequency. No other exacerbating or remitting f actors. PAST MEDICAL HISTORY:See Below PAST SURGICAL HISTORY:See Below FAMILY HISTORY:See Below SOCIAL HISTORY:See Below HOME MEDICATIONS:See Below ALLERGIES:See Below VITALS:See Below PHYSICAL EXAMINATION: GENERAL: Sitting up in bed, alert, well appearing, well nourished, no distress, non-toxic EYE EXAM: normal conjunctiva. PERRL and EOM's intact. OROPHARYNX: no exudate, no erythema, lips, buccal mucosa, and tongue normal and mucous membranes are moist NECK: supple, no nuchal rigidity, no adenopathy, non-tender LUNGS: Clear to auscultation. Normal chest wall mechanics HEART: no murmurs, S1 normal and S2 normal ABDOMEN: abdomen soft, non-tender, normo-active bowel sounds, no masses, no rebound or guarding. UPPER EXTREMITIES: upper extremities are grossly normal. LOWER EXTREMITIES: No pitting edema. NEURO EXAM: Normal sensorium, cranial nerves II-XII intact, normal speech, no weakness of arms, no weakness of legs. No drift. Finger to nose intact. Gross sensation intact. MEDICAL DECISION MAKING: Patient is a 66-year-old male who presents ER for above-stated complaint. IV was established blood work is obtained. External records were reviewed. History is obtained from the patient and who is also at bedside. She notes that he has been intermittently confused. Upon presentation he is completely awake alert oriented following commands. IV was established blood work is obtained. Labs show mild leukocytosis of 13,000. Hemoglobin of 12. BMP with a significant hyponatremia at 110. Chloride slightly low at 77. LFTs bilirubin was unremarkable. TSH was unremarkable. UA was eventually obtained and was clean. Upon the result of the BMP with significant hyponatremia I was called to bedside by the nursing staff as patient was confused. At this point patient was given 100 cc of 3% sodium for the confusion and the severe hyponatremia. Contacted the ICU and discussed with Brice who is on-call. Also discussed with Dr. Champagne for further evaluation management and admission to the hospital service. Patient's mentation did clear up just prior to the admission of the 3%. Patient was given 100 cc of 3% saline for the significant hyponatremia and confusion. Patient was admitted to the ICU. Sanchez was placed prior to admission with small amount of urine out. He was also given [address] head was negative. Please see the hospitalist and high school computer science teacher notes for further evaluation management treatment. Triage Nursing notes reviewed. Limited review of prior medical records performed Vital Signs: reviewed and remarkable for HTN Differential diagnosis: Differential diagnoses includes but is not limited to gastritis, peptic ulcer disease, GERD, gallbladder disease, pancreatitis, small bowel obstruction, appendicitis, diverticulitis, hernia, urinary tract infection, torsion, perforation, trauma, infectious. ER treatment provided: See below Diagnostics interpreted by me include EKG and cardiac monitoring as listed below: -Cardiac Monitoring: An order was placed for continuous cardiac monitoring. The monitor shows a rate of 80 with sinus rhythm. -ECG: none -Laboratory studies:Interpreted by me as stated above in MDM and shown below. Imaging studies: Xrays: As interpreted by me:none CTs show: CT head was negative per my read for any acute large bleed CT head per radiology shows no acute pathology Consultation(s): As described in MDM Procedures:none Critical Care: I have personally spent 55 minutes of critical care time in the direct management of this patient. This includes bedside care, interpretation of diagnostic studies, and testing, discussion with consultants, patient, and family members, and other required patient management activities. This 55 minutes is in excess of all separately billable procedures. Past Med/Surg History Medical History (Updated 10/01/22 @ 21:40 by Oleg Muhammad DO) Chronic kidney disease, stage 3a Cigar smoker Quit in 2018 Hyponatremia Dating back to at least October 2017. Na mid to low 130's. 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 Surgical History History of colonoscopy 2017 History of cystoscopy RECENT 04/06/18. MAC with propofol. No issues. History of herniorrhaphy CHILD History of nephrectomy 06/09/2018. GETA. MAC 4, grade 2 view. 8.0 ETT. No issues. Family History Aunt Family history of diabetes mellitus Mother Malignant melanoma Other Diabetes Denies family history of Ovarian cancer Prostate cancer Myocardial infarction Breast cancer Colorectal cancer Social History Smoking Status: Never smoker Tobacco Type: Cigarettes Age Started Using Tobacco: 20; Age Quit Using Tobacco: 63; packs per day: 0.2; Cigarettes Per Day: 4 CIGS PER DAY X SEVERAL YEARS; Second Hand Exposure: Yes; Do You Dip or Chew Tobacco: No; Hx Alcohol Use: No Hx Substance Use: No Preferred Language: [place] Communication Ability: Effective Visual Impairment: No Limitations Seasoning Sprayer Required: No Beliefs That Will Affect Care: None marital status: Current Living Situation: Spouse current occupational status: employed 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 How many Children do You have: 1 Feels Safe at Home: Yes Childhood Exposure to Second-Hand Smoke: Yes Diet: regular caffeine: Yes (coffee) Dental Care, Regularly: Yes Physical Activity Frequency: 1-2 Times per Week Seatbelt Use: always Sunscreen Use: Yes Assistive Devices: CPAP and Glasses Allergies Allergies Allergy/AdvReac Type Severity Reaction Status Date / Time No Known Allergies Allergy Mild Verified 07/25/22 10:40 Home Meds Previous Rx's Medication Instructions Recorded cholecalciferol (vitamin D3) 125 125 mcg PO DAILY #30 caps 03/13/20 mcg (5,000 unit) capsule triamterene 37.5 0.5 tab PO DAILY #30 tabs 10/02/21 mg-hydrochlorothiazide 25 mg tablet finasteride 5 mg tablet 5 mg PO DAILY #30 tabs 11/05/21 atenolol 25 mg tablet 25 mg PO DAILY #90 tabs 12/06/21 fluoxetine 20 mg capsule 20 mg PO DAILY #90 caps 12/06/21 simvastatin 20 mg tablet 20 mg PO DAILY #90 tabs 12/06/21 buspirone 10 mg tablet 10 mg PO TID PRN anxiety #270 tabs 01/22/22 losartan 100 mg tablet 100 mg PO DAILY #90 tabs 04/03/22 tamsulosin 0.4 mg capsule 0.4 mg PO HS #90 caps 04/17/22 Results & Data (ED) Vital Signs Vital Signs - 24 hr 10/01/22 16:44 10/01/22 17:40 10/01/22 17:56 Temperature 36.7 C Temperature Source Temporal Artery Scan Pulse Rate 82 65 Pulse Rate [Apical] 77 Pulse Rhythm Regular Pulse Strength Normal Respiratory Rate 20 18 Respiratory Effort / Characteristics Non-Labored Spontaneous Respiratory Depth Normal Respiratory Pattern Regular Blood Pressure 169/70 H Blood Pressure [Left Arm] 161/78 H Blood Pressure Mean 103 Blood Pressure Mean [Left Arm] 105 Blood Pressure Position Sitting Pulse Oximetry 98 96 Oxygen Delivery Method Room Air Room Air Sepsis Recent Fever Within 48 Hours No Sepsis New/Unexplained Change in Mental Status No Sepsis Action Taken by Nursing No Action Required 10/01/22 19:00 10/01/22 19:15 10/01/22 19:34 Temperature Temperature Source Pulse Rate 64 63 64 Pulse Rate [Apical] Pulse Rhythm Pulse Strength Respiratory Rate 26 H 24 24 Respiratory Effort / Characteristics Respiratory Depth Respiratory Pattern Blood Pressure 154/68 H 146/66 H 152/60 H Blood Pressure [Left Arm] Blood Pressure Mean 96 92 90 Blood Pressure Mean [Left Arm] Blood Pressure Position Pulse Oximetry 93 95 95 Oxygen Delivery Method Sepsis Recent Fever Within 48 Hours Sepsis New/Unexplained Change in Mental Status Sepsis Action Taken by Nursing 10/01/22 20:00 10/01/22 20:15 Temperature Temperature Source Pulse Rate 62 59 L Pulse Rate [Apical] Pulse Rhythm Pulse Strength Respiratory Rate 26 H 22 Respiratory Effort / Characteristics Respiratory Depth Respiratory Pattern Blood Pressure 165/49 H 153/70 H Blood Pressure [Left Arm] Blood Pressure Mean 87 97 Blood Pressure Mean [Left Arm] Blood Pressure Position Pulse Oximetry 95 94 Oxygen Delivery Method Sepsis Recent Fever Within 48 Hours Sepsis New/Unexplained Change in Mental Status Sepsis Action Taken by Nursing Laboratory Data 10/01/22 17:31 10/01/22 17:31 Lab Results 10/01/22 10/01/22 10/01/22 Range/Units 17:31 17:31 17:31 WBC 13.07 H (4.8-10.8) K/ul RBC 4.03 L (4.70-6.10) M/uL Hgb 12.2 L (14.0-18.0) g/dl Hct 33.5 L (42.0-52.0) % MCV 83.1 (80.0-100.0) fL MCH 30.3 (25.0-34.0) pg MCHC 36.4 H (32.0-36.0) g/dL RDW Std Deviation 36.9 (36.4-46.3) fL RDW Coeff of Kate 12.0 (11.5-14.5) % Plt Count 267 (130-400) K/uL MPV 10.0 (9.4-12.4) fL Immature Gran % (Auto) 0.5 % Neut % (Auto) 85.6 % Lymph % (Auto) 4.8 % [place] % (Auto) 8.7 % Eos % (Auto) 0.2 % Baso % (Auto) 0.2 % Neut # (Auto) 11.19 H (1.40-6.50) K/uL Lymph # (Auto) 0.63 L (1.2-3.4) K/uL [place] # (Auto) 1.14 H (0.11-0.59) K/uL Eos # (Auto) 0.02 (0-0.50) K/uL Baso # (Auto) 0.02 (0-0.2) K/uL Immature Gran # (Auto) 0.07 (0.01-0.20) K/uL Sodium 110 L* (136-145) mmol/L Potassium 3.8 (3.5-5.1) mmol/L Chloride 77 L (98-107) mmol/L Carbon Dioxide 23 (21-32) mmol/L Anion Gap 10 (3-11) BUN 18 (6-23) mg/dl Creatinine 1.03 (0.6-1.4) mg/dl Est Cr Clr Drug Dosing 95.2 ml/min Est GFR ( Amer) 88.6 ml/min Est GFR (Non-Af Amer) 76.4 ml/min BUN/Creatinine Ratio 17.5 (10-20) Glucose 97 (70-99(Fasting)) mg/dl POC Glucose (70-99) mg/dl Osmolality 237 L* (280-300) mOsm/kg Calcium 9.0 (8.6-10.3) mg/dl Magnesium 1.8 (1.7-2.4) mg/dl Total Bilirubin 1.2 H (0.2-1.0) mg/dl AST 116 H (13-39) U/L ALT 34 (7-52) U/L Alkaline Phosphatase 86 (34-104) U/L Total Protein 6.9 (6.0-8.3) gm/dl Albumin 4.3 (3.4-5.0) gm/dl Globulin 2.6 (2.5-4.0) gm/dl Albumin/Globulin Ratio 1.7 (0.9-2) TSH (0.300-4.500) uIu/ml Urine Color Urine Appearance (Clear) Urine pH (4.5-7.5) Ur Specific [place] (1.000-1.030) Urine Protein (Negative) Urine Glucose (UA) (Negative) Urine Ketones (Negative) Urine Blood (Negative) Urine Nitrite (Negative) Urine Bilirubin (Negative) Urine Urobilinogen (Negative) Ur Leukocyte Esterase (Negative) Urine WBC (Auto) (0-5) /hpf Urine RBC (Auto) (0-4) /hpf U Hyaline Cast (Auto) (0-5) /lpf U Epithel Cells (Auto) (0-5) /lpf Urine Bacteria (Auto) (Negative) Urine Osmolality (500-800) mOsm/kg Ur Random Creatinine mg/dl U Random Total Protein (0-11.9) mg/dl Ur Random Sodium mmol/L Protein/Creatinin Ratio (0-0.2) SARS-CoV-2, RNA, NAAT (NEGATIVE) 10/01/22 10/01/22 10/01/22 Range/Units 17:31 18:35 18:35 WBC (4.8-10.8) K/ul RBC (4.70-6.10) M/uL Hgb (14.0-18.0) g/dl Hct (42.0-52.0) % MCV (80.0-100.0) fL MCH (25.0-34.0) pg MCHC (32.0-36.0) g/dL RDW Std Deviation (36.4-46.3) fL RDW Coeff of Kate (11.5-14.5) % Plt Count (130-400) K/uL MPV (9.4-12.4) fL Immature Gran % (Auto) % Neut % (Auto) % Lymph % (Auto) % [place] % (Auto) % Eos % (Auto) % Baso % (Auto) % Neut # (Auto) (1.40-6.50) K/uL Lymph # (Auto) (1.2-3.4) K/uL [place] # (Auto) (0.11-0.59) K/uL Eos # (Auto) (0-0.50) K/uL Baso # (Auto) (0-0.2) K/uL Immature Gran # (Auto) (0.01-0.20) K/uL Sodium (136-145) mmol/L Potassium (3.5-5.1) mmol/L Chloride (98-107) mmol/L Carbon Dioxide (21-32) mmol/L Anion Gap (3-11) BUN (6-23) mg/dl Creatinine (0.6-1.4) mg/dl Est Cr Clr Drug Dosing ml/min Est GFR ( Amer) ml/min Est GFR (Non-Af Amer) ml/min BUN/Creatinine Ratio (10-20) Glucose (70-99(Fasting)) mg/dl POC Glucose (70-99) mg/dl Osmolality (280-300) mOsm/kg Calcium (8.6-10.3) mg/dl Magnesium (1.7-2.4) mg/dl Total Bilirubin (0.2-1.0) mg/dl AST (13-39) U/L ALT (7-52) U/L Alkaline Phosphatase (34-104) U/L Total Protein (6.0-8.3) gm/dl Albumin (3.4-5.0) gm/dl Globulin (2.5-4.0) gm/dl Albumin/Globulin Ratio (0.9-2) TSH 0.884 (0.300-4.500) uIu/ml Urine Color Yellow Urine Appearance Clear (Clear) Urine pH 6.5 (4.5-7.5) Ur Specific [place] 1.017 (1.000-1.030) Urine Protein 1+ H (Negative) Urine Glucose (UA) Negative (Negative) Urine Ketones 2+ H (Negative) Urine Blood Trace H (Negative) Urine Nitrite Negative (Negative) Urine Bilirubin Negative (Negative) Urine Urobilinogen Negative (Negative) Ur Leukocyte Esterase Negative (Negative) Urine WBC (Auto) 1-5 (0-5) /hpf Urine RBC (Auto) 0-4 (0-4) /hpf U Hyaline Cast (Auto) 0 (0-5) /lpf U Epithel Cells (Auto) 10-20 H (0-5) /lpf Urine Bacteria (Auto) Negative (Negative) Urine Osmolality 548 (500-800) mOsm/kg Ur Random Creatinine mg/dl U Random Total Protein (0-11.9) mg/dl Ur Random Sodium mmol/L Protein/Creatinin Ratio (0-0.2) SARS-CoV-2, RNA, NAAT (NEGATIVE) 10/01/22 10/01/22 10/01/22 Range/Units 18:35 18:35 18:43 WBC (4.8-10.8) K/ul RBC (4.70-6.10) M/uL Hgb (14.0-18.0) g/dl Hct (42.0-52.0) % MCV (80.0-100.0) fL MCH (25.0-34.0) pg MCHC (32.0-36.0) g/dL RDW Std Deviation (36.4-46.3) fL RDW Coeff of Kate (11.5-14.5) % Plt Count (130-400) K/uL MPV (9.4-12.4) fL Immature Gran % (Auto) % Neut % (Auto) % Lymph % (Auto) % [place] % (Auto) % Eos % (Auto) % Baso % (Auto) % Neut # (Auto) (1.40-6.50) K/uL Lymph # (Auto) (1.2-3.4) K/uL [place] # (Auto) (0.11-0.59) K/uL Eos # (Auto) (0-0.50) K/uL Baso # (Auto) (0-0.2) K/uL Immature Gran # (Auto) (0.01-0.20) K/uL Sodium (136-145) mmol/L Potassium (3.5-5.1) mmol/L Chloride (98-107) mmol/L Carbon Dioxide (21-32) mmol/L Anion Gap (3-11) BUN (6-23) mg/dl Creatinine (0.6-1.4) mg/dl Est Cr Clr Drug Dosing ml/min Est GFR ( Amer) ml/min Est GFR (Non-Af Amer) ml/min BUN/Creatinine Ratio (10-20) Glucose (70-99(Fasting)) mg/dl POC Glucose 102 H (70-99) mg/dl Osmolality (280-300) mOsm/kg Calcium (8.6-10.3) mg/dl Magnesium (1.7-2.4) mg/dl Total Bilirubin (0.2-1.0) mg/dl AST (13-39) U/L ALT (7-52) U/L Alkaline Phosphatase (34-104) U/L Total Protein (6.0-8.3) gm/dl Albumin (3.4-5.0) gm/dl Globulin (2.5-4.0) gm/dl Albumin/Globulin Ratio (0.9-2) TSH (0.300-4.500) uIu/ml Urine Color Urine Appearance (Clear) Urine pH (4.5-7.5) Ur Specific [place] (1.000-1.030) Urine Protein (Negative) Urine Glucose (UA) (Negative) Urine Ketones (Negative) Urine Blood (Negative) Urine Nitrite (Negative) Urine Bilirubin (Negative) Urine Urobilinogen (Negative) Ur Leukocyte Esterase (Negative) Urine WBC (Auto) (0-5) /hpf Urine RBC (Auto) (0-4) /hpf U Hyaline Cast (Auto) (0-5) /lpf U Epithel Cells (Auto) (0-5) /lpf Urine Bacteria (Auto) (Negative) Urine Osmolality (500-800) mOsm/kg Ur Random Creatinine 87.4 mg/dl U Random Total Protein 39.9 H (0-11.9) mg/dl Ur Random Sodium 82 mmol/L Protein/Creatinin Ratio 0.5 H (0-0.2) SARS-CoV-2, RNA, NAAT (NEGATIVE) 10/01/22 Range/Units 18:53 WBC (4.8-10.8) K/ul RBC (4.70-6.10) M/uL Hgb (14.0-18.0) g/dl Hct (42.0-52.0) % MCV (80.0-100.0) fL MCH (25.0-34.0) pg MCHC (32.0-36.0) g/dL RDW Std Deviation (36.4-46.3) fL RDW Coeff of Kate (11.5-14.5) % Plt Count (130-400) K/uL MPV (9.4-12.4) fL Immature Gran % (Auto) % Neut % (Auto) % Lymph % (Auto) % [place] % (Auto) % Eos % (Auto) % Baso % (Auto) % Neut # (Auto) (1.40-6.50) K/uL Lymph # (Auto) (1.2-3.4) K/uL [place] # (Auto) (0.11-0.59) K/uL Eos # (Auto) (0-0.50) K/uL Baso # (Auto) (0-0.2) K/uL Immature Gran # (Auto) (0.01-0.20) K/uL Sodium (136-145) mmol/L Potassium (3.5-5.1) mmol/L Chloride (98-107) mmol/L Carbon Dioxide (21-32) mmol/L Anion Gap (3-11) BUN (6-23) mg/dl Creatinine (0.6-1.4) mg/dl Est Cr Clr Drug Dosing ml/min Est GFR ( Amer) ml/min Est GFR (Non-Af Amer) ml/min BUN/Creatinine Ratio (10-20) Glucose (70-99(Fasting)) mg/dl POC Glucose (70-99) mg/dl Osmolality (280-300) mOsm/kg Calcium (8.6-10.3) mg/dl Magnesium (1.7-2.4) mg/dl Total Bilirubin (0.2-1.0) mg/dl AST (13-39) U/L ALT (7-52) U/L Alkaline Phosphatase (34-104) U/L Total Protein (6.0-8.3) gm/dl Albumin (3.4-5.0) gm/dl Globulin (2.5-4.0) gm/dl Albumin/Globulin Ratio (0.9-2) TSH (0.300-4.500) uIu/ml Urine Color Urine Appearance (Clear) Urine pH (4.5-7.5) Ur Specific [place] (1.000-1.030) Urine Protein (Negative) Urine Glucose (UA) (Negative) Urine Ketones (Negative) Urine Blood (Negative) Urine Nitrite (Negative) Urine Bilirubin (Negative) Urine Urobilinogen (Negative) Ur Leukocyte Esterase (Negative) Urine WBC (Auto) (0-5) /hpf Urine RBC (Auto) (0-4) /hpf U Hyaline Cast (Auto) (0-5) /lpf U Epithel Cells (Auto) (0-5) /lpf Urine Bacteria (Auto) (Negative) Urine Osmolality (500-800) mOsm/kg Ur Random Creatinine mg/dl U Random Total Protein (0-11.9) mg/dl Ur Random Sodium mmol/L Protein/Creatinin Ratio (0-0.2) SARS-CoV-2, RNA, NAAT NEGATIVE (NEGATIVE) Administered Medications Discontinued Medications Sodium Chloride (Nss) 500 mls @ 999 mls/hr IV .Q31M ONE Stop: 10/01/22 17:43 Last Infusion: 10/01/22 18:43 Dose: 0 mls/hr Documented By: Admin: 10/01/22 17:39 Dose: 999 mls/hr Documented By: LYNDSEY Sodium Chloride (Hypertonic Saline 3%) 100 mls @ 600 mls/hr IV .Q10M ONE; Pr otocol Stop: 10/01/22 18:41 Last Admin: 10/01/22 18:36 Dose: 600 mls/hr Documented By: LYNDSEY Co-signed By: SMITH Ioversol (Optiray 320 100ml) 90 ml IV ONCE ONE Stop: 10/01/22 20:38 Last Admin: 10/01/22 20:37 Dose: 90 ml Documented By: PALOMA Potassium Chloride (Potassium Chloride Crtab 20 Meq Tabcr) 40 meq PO NOW STA Stop: 10/01/22 19:16 Last Admin: 10/01/22 19:29 Dose: 40 meq Documented By: SHANNEN Imaging Data Radiologist's Impression: Head CT 10/01/22 17:11 CT head/brain wo con CLINICAL HISTORY: confusion Technique: Contiguous axial CT images of the head were acquired from the base of the skull to the vertex without intravenous contrast administration. Images were viewed in brain, subdural and bone windows. Automated dose lowering techniques and/or adjustment according to patient size were utilized for this exam. Comparison: Comparison is made to CT head 09/28/2021 Findings: Areas of decreased attenuation are present in the periventricular and subcortical white matter bilaterally consistent with small vessel ischemic disease. Generalized cerebral atrophy with commensurate enlargement of the ventricles, sulci, and cisterns is also present. There is no acute intracranial hemorrhage or evidence of acute territorial infarction. No shift of the midline structures, mass effect, or extra-axial abnormalities are shown. Atherosclerotic calcifications are present in the intracranial segments of the internal carotid arteries. Imaged portions of the paranasal sinuses and mastoid air cells are clear. The orbits appear normal. There are no acute fractures of the calvaria or scalp swelling. Impression: No acute intracranial hemorrhage, no evidence of acute territorial infarction or other acute intracranial disease process. ACT 112: Negative or not required by law. Electronically signed by: Sonu Dumont M.D. 10/01/2022 5:58 PM Abdomen/Pelvis CT 10/01/22 19:19 Exam(s): CT ABDOMEN + PELVIS With Contrast IV Amt: 90 ml optiray 320 EXAM: CT Abdomen and Pelvis With Intravenous Contrast CLINICAL HISTORY: Reason for exam: Hx od renal cancer, monitoring for obstruction. TECHNIQUE: Axial computed tomography images of the abdomen and pelvis with intravenous contrast. CTDI is 28.14 mGy and DLP is 1330.96 mGy-cm. Automated exposure control was utilized for the study. A dose lowering technique was utilized adhering to the principles of ALARA. CONTRAST: Patient received 90 ml optiray 320 of IV contrast COMPARISON: No relevant prior studies available. FINDINGS: Lung bases: Unremarkable. No mass. No consolidation. ABDOMEN: Liver: Unremarkable. No mass. Gallbladder and bile ducts: Unremarkable. No calcified stones. No ductal dilation. Pancreas: Unremarkable. No mass. No ductal dilation. Spleen: Calcified splenic granulomas. Adrenals: Unremarkable. No mass. Kidneys and ureters: LEFT nephrectomy. No hydronephrosis or delayed nephrogram. Stomach and bowel: Diverticulosis, without acute diverticulitis. No small bowel obstruction. No free intraperitoneal air. PELVIS: Appendix: No findings to suggest acute appendicitis. Bladder: Decompressed urinary bladder, which contains a Sanchez catheter. Reproductive: Unremarkable as visualized. ABDOMEN and PELVIS: Intraperitoneal space: Unremarkable. No free air. No significant fluid collection. Bones/joints: Degenerative changes of the spine. No acute fracture. No dislocation. Soft tissues: Unremarkable. Vasculature: Atherosclerotic changes of the aorta. No abdominal aortic aneurysm. Lymph nodes: Unremarkable. No enlarged lymph nodes. IMPRESSION: 1. LEFT nephrectomy. 2. Decompressed urinary bladder, which contains a Sanchez catheter. 3. Diverticulosis, without acute diverticulitis. No small bowel obstruction. No free intraperitoneal air. Electronically signed by: Caesar Mosher MD 10/01/22 20:52 PM Discharge Plan Visit Data Chief Complaint: Unable to Void Stated Complaint: TROUBLE URINATING,NOT FEELING WELL ED Provider: Oleg Muhammad Discharge Problem: Acute hyponatremia, AMS (altered mental status), Weakness Forms Stand Alone Forms: [facility] C2[facility] Prescriptions Prescriptions: No Action finasteride 5 mg tablet 5 mg PO DAILY Qty: 30 11RF atenolol 25 mg tablet 25 mg PO DAILY Qty: 90 3RF fluoxetine 20 mg capsule 20 mg PO DAILY Qty: 90 3RF simvastatin 20 mg tablet 20 mg PO DAILY Qty: 90 3RF buspirone 10 mg tablet 10 mg PO TID PRN (Reason: anxiety) Qty: 270 3RF losartan 100 mg tablet 100 mg PO DAILY Qty: 90 3RF tamsulosin 0.4 mg capsule 0.4 mg PO HS Qty: 90 3RF cholecalciferol (vitamin D3) 125 mcg (5,000 unit) capsule 125 mcg PO DAILY Qty: 30 0RF triamterene-hydrochlorothiazid 37.5-25 mg tablet 0.5 tab PO DAILY Qty: 30 11RF Referrals Referrals: Dhruv Rose DO [Primary Care Provider] -
[2022-10-01 17:55] LABS: Basophils # (auto) 0.02 K/uL (0-0.2); Basophils % (auto) 0.2 %; Eosinophils # (auto) 0.02 K/uL (0-0.50); Eosinophils % (auto) 0.2 %; Hematocrit (blood only) 33.5 % (42.0-52.0); Hemoglobin 12.2 g/dl (14.0-18.0); Immature Granulocytes # (auto) 0.07 K/uL (0.01-0.20); Immature Granulocytes % (auto) 0.5 %; Lymphocytes # (auto) 0.63 K/uL (1.2-3.4); Lymphocytes % (auto) 4.8 %; Mean Corpuscular Hemoglobin 30.3 pg (25.0-34.0); Mean Corpuscular Hgb Conc 36.4 g/dL (32.0-36.0); Mean Corpuscular Volume 83.1 fL (80.0-100.0); Monocytes # (auto) 1.14 K/uL (0.11-0.59); Monocytes % (auto) 8.7 %; Neutrophils # (auto) 11.19 K/uL (1.40-6.50); Neutrophils % (auto) 85.6 %; Platelet Count 267 K/uL (130-400); RDW Standard Deviation 36.9 fL (36.4-46.3); Red Blood Count 4.03 M/uL (4.70-6.10); White Blood Count 13.07 K/ul (4.8-10.8)
--- NOTE | 2022-10-01 17:59 | CT Scan Report ---
CT head/brain wo con CLINICAL HISTORY: confusion Technique: Contiguous axial CT images of the head were acquired from the base of the skull to the armida richie without intravenous contrast administration. Images were viewed in brain, subdural and [facility]. Automated dose lowering techniques and/or adjustment according to patient size were utilized for this exam. Comparison: Comparison is made to CT head 09/28/2021 Findings: Areas of decreased attenuation are present in the periventricular and subcortical white matter bilate rally consistent with small vessel ischemic disease. Generalized cerebral atrophy with commensurate e nlargement of the ventricles, sulci, and cisterns is also present. There is no acute intracranial hem orrhage or evidence of acute territorial infarction. No shift of the midline structures, mass effect, or extra-axial abnormalities are shown. Atherosclerotic calcifications are present in the intracran ial segments of the internal carotid arteries. Imaged portions of the paranasal sinuses and mastoid air cells are clear. The orbits appear normal. There are no acute fractures of the calvaria or scalp swelling. Impression: No acute intracranial hemorrhage, no evidence of acute territorial infarction or other acute intracra nial disease process. ACT 112: Negative or not required by law. Electronically signed by: Sonu Dumont M.D. 10/01/2022 5:58 PM
[2022-10-01 18:13] LABS: Albumin Globulin Ratio 1.7 (0.9-2); Albumin Level 4.3 gm/dl (3.4-5.0); BUN Creatinine Ratio 17.5 (10-20); Bilirubin,Total 1.2 mg/dl (0.2-1.0); Creatinine Clr Calc Pharmacy 95.2 ml/min; Est GFR (African American) 88.6 ml/min; Est GFR (Non-African American) 76.4 ml/min; Globulin 2.6 gm/dl (2.5-4.0); Potassium 3.8 mmol/L (3.5-5.1); Total Protein 6.9 gm/dl (6.0-8.3)
[2022-10-01 18:27] LABS: Magnesium 1.8 mg/dl (1.7-2.4)
[2022-10-01] MEDS ORDERED: SODIUM CHLORIDE 3 % 100 ML IV ONE (18:32)
[2022-10-01] MEDS ORDERED: STAT IV STA ×2 (18:32→22:35)
--- NOTE | 2022-10-01 18:46 | History & Physical Report ---
Date of Service October 01, 2022 Assessment & Plan (1) Acute hyponatremia: Plan: -Admit to the ICU -Currently stable and Neurologically intact -Initial sodium in the ED noted to be 110 -Likely multifactorial including poor oral intake with increased free water consumption and continued diuretic use, cannot rule out obstruction at this time -Mild leukocytosis with left shift, no signs of infection on UA or exam at this time -S/P 500 mL NSS and 100 mL 3% hypertonic saline in the ED -Will obtain CT of the abd/pelvis w/con to monitor for obstruction and/or signs of malignancy with his previous hx -Communication placed for no free water -Will monitor BMP q4h moving forward -Hsieh cath is in place, monitor intake and output closely -Will obtain urine sodium, osmolality, and protein:Cr ratio for further evaluation -Hold diuretics, fluoxetine, and buspar for now -BL SCD's and SQ Heparin for DVT PPX -Will keep NPO except meds until the patient arrives in the ICU -AM CBC, mag, PT/INR (2) Severe sleep apnea: Plan: -HS CPAP ordered (3) Chronic kidney disease, stage 3a: Plan: -Renal function stable -Continue to monitor q4h with electrolytes for now (4) BPH (benign prostatic hyperplasia): Plan: -Continue finasteride and flomax -FU on CT of the abd/pelvis for sings of obstruction (5) Benign hypertension: Plan: -Stable -Hold triamterene-HCTZ with hyponatremia -Continue atenolol and losartan (6) Anxiety: Plan: -Hold buspar and fluoxetine until sodium is stable Plan The patient was discussed with Dr. 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 In the ED the patient was noted to be stable. Labs were significant for a leukocytosis of 13 with left shift of 11, sodium of 110, ch loride of 77, glucose of 102, serum osmolality of 237, AST of 116, total bili of 1.2, covid 19 negative, and UA with 1+ protein, 2+ ketones, trace blood and no signs of infection. The patient became confused/disoriented while in the CT, CT of the head was negative for acute findings. The patient was unable to provide a urine sample so a hsieh cath was placed with approximately 300 cc of dark urine output. Prior to admission the patient was given 500 mL NSS and 100 mL of 3% hypertonic saline. At the time of the exam the patient was sitting in bed in no acute distress with his sitting bedside, history was obtained from both. The patient has a long history of difficulty urinating, he follows with Dr. Chou for his previous urologic malignancy and BPH. The patient started having increased urinary retention/difficultly urinating approximately 2 weeks ago despite being on finasteride and Flomax. A UA was obtained in the Urology clinic which was negative for infection. Starting on 09/28 the patient developed significantly reduced urinary output with increased urinary urgency. Over this time the patient has had very poor oral intake but has been drinking "lots of water" to try and stay hydrated. He was still taking all medications as prescribed over this time. He denies recent fever, chills, headache, changes in vision, hearing taste, and smell, paraesthesias, chest pain, SOB, cough, abd pain, nausea, vomiting, diarrhea, hematuria, melena, bloody BM's, insect bites, rash, LE swelling and recent trauma. The patient and his confirm that his mental status is back to baseline at the time of the exam. He is a full code and his would make medical decisions for him if he could not make them himself. Please refer to Dr. Hauser's attestation for any changes to the treatment plan Allergies Allergy/AdvReac Type Severity Reaction Status Date / Time No Known Allergies Allergy Mild Verified 07/25/22 10:40 Home Medications Medication Instructions Recorded Confirmed Type cholecalciferol (vitamin D3) 125 125 mcg PO DAILY #30 caps 03/13/20 10/01/22 Rx mcg (5,000 unit) capsule triamterene 37.5 0.5 tab PO DAILY #30 tabs 10/02/21 10/01/22 Rx mg-hydrochlorothiazide 25 mg tablet finasteride 5 mg tablet 5 mg PO DAILY #30 tabs 11/05/21 10/01/22 Rx atenolol 25 mg tablet 25 mg PO DAILY #90 tabs 12/06/21 10/01/22 Rx fluoxetine 20 mg capsule 20 mg PO DAILY #90 caps 12/06/21 10/01/22 Rx simvastatin 20 mg tablet 20 mg PO DAILY #90 tabs 12/06/21 10/01/22 Rx buspirone 10 mg tablet 10 mg PO TID PRN anxiety #270 tabs 01/22/22 10/01/22 Rx losartan 100 mg tablet 100 mg PO DAILY #90 tabs 04/03/22 10/01/22 Rx tamsulosin 0.4 mg capsule 0.4 mg PO HS #90 caps 04/17/22 10/01/22 Rx Past Med/Surg History Medical History (Updated 10/01/22 @ 19:43 by Giuseppe Paz PA-C) Chronic kidney disease, stage 3a Cigar smoker Quit in 2018 Hyponatremia Dating back to at least October 2017. Na mid to low 130's. 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 Surgical History History of colonoscopy 2017 History of cystoscopy RECENT 04/06/18. MAC with propofol. No issues. History of herniorrhaphy CHILD History of nephrectomy 06/09/2018. GETA. MAC 4, grade 2 view. 8.0 ETT. No issues. Family History Aunt Family history of diabetes mellitus Mother Malignant melanoma Other Diabetes Denies family history of Ovarian cancer Prostate cancer Myocardial infarction Breast cancer Colorectal cancer Social History (Updated 08/09/22 @ 10:08 by ANH Beauchamp) Smoking Status: Never smoker Tobacco Type: Cigarettes Age Started Using Tobacco: 20; Age Quit Using Tobacco: 63; packs per day: 0.2; Cigarettes Per Day: 4 CIGS PER DAY X SEVERAL YEARS; Second Hand Exposure: Yes; Do You Dip or Chew Tobacco: No; Hx Alcohol Use: No Hx Substance Use: No Preferred Language: Polish Communication Ability: Effective Visual Impairment: No Limitations Coremaker Floor Required: No Beliefs That Will Affect Care: None marital status: Current Living Situation: Spouse current occupational status: employed 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 How many Children do You have: 1 Feels Safe at Home: Yes Childhood Exposure to Second-Hand Smoke: Yes Diet: regular caffeine: Yes (coffee) Dental Care, Regularly: Yes Physical Activity Frequency: 1-2 Times per Week Seatbelt Use: always Sunscreen Use: Yes Assistive Devices: CPAP and Glasses Physical Exam Physical Exam: Physical Exam: General: In no acute distress, stated age, well-nourished, non-toxic appearing HEENT: Normocephalic, atraumatic, no scleral icterus, pupils around round, symmetrical, and reactive to light, dry mucus membranes, trachea midline, no thyromegaly Chest/Pulm: No respiratory distress, symmetrical chest expansion, clear breath sounds throughout Cardiac: RRR, no murmurs noted Abdomen: Negative for ascites and bruising, normoactive bowel sounds, soft, non-tender to palpation throughout : Hsieh cath in place, currently with 300 cc of dark, clear urine Musculoskeletal: Symmetrical and without signs of acute trauma, upper and lower extremities with full ROM, no atrophy, spasticity, or flaccidity Extremities: Radial, dorsalis pedis, and posterior tibial pulses are intact and symmetrical, no edema noted in the BL LE's Skin: Warm, dry, no rashes , lesions, or scars noted Neuro: Alert and oriented to person, place, month, year, and president, no fo litzy defects, CN II-XII tested and intact, finger to nose test negative, no tremors noted Psych: No acute distress, calm and cooperative during the exam Results & Data Results & Data Vital Signs (Past 12 Hours) Vital Signs Temp Pulse Pulse Resp BP BP Pulse Ox 10/01/22 17:56 65 10/01/22 17:40 77 18 161/78 H 96 10/01/22 16:44 36.7 C 82 20 169/70 H 98 O2 Del Method 10/01/22 17:56 10/01/22 17:40 Room Air 10/01/22 16:44 Room Air Laboratory Results Abnormal lab results 10/01/22 10/01/22 10/01/22 Range/Units 17:31 17:31 17:31 WBC 13.07 H (4.8-10.8) K/ul RBC 4.03 L (4.70-6.10) M/uL Hgb 12.2 L (14.0-18.0) g/dl Hct 33.5 L (42.0-52.0) % MCHC 36.4 H (32.0-36.0) g/dL Neut # (Auto) 11.19 H (1.40-6.50) K/uL Lymph # (Auto) 0.63 L (1.2-3.4) K/uL [place] # (Auto) 1.14 H (0.11-0.59) K/uL Sodium 110 L* (136-145) mmol/L Chloride 77 L (98-107) mmol/L POC Glucose (70-99) mg/dl Osmolality 237 L* (280-300) mOsm/kg Total Bilirubin 1.2 H (0.2-1.0) mg/dl AST 116 H (13-39) U/L Urine Protein (Negative) Urine Ketones (Negative) Urine Blood (Negative) U Epithel Cells (Auto) (0-5) /lpf U Random Total Protein (0-11.9) mg/dl 10/01/22 10/01/22 10/01/22 Range/Units 18:35 18:35 18:43 WBC (4.8-10.8) K/ul RBC (4.70-6.10) M/uL Hgb (14.0-18.0) g/dl Hct (42.0-52.0) % MCHC (32.0-36.0) g/dL Neut # (Auto) (1.40-6.50) K/uL Lymph # (Auto) (1.2-3.4) K/uL [place] # (Auto) (0.11-0.59) K/uL Sodium (136-145) mmol/L Chloride (98-107) mmol/L POC Glucose 102 H (70-99) mg/dl Osmolality (280-300) mOsm/kg Total Bilirubin (0.2-1.0) mg/dl AST (13-39) U/L Urine Protein 1+ H (Negative) Urine Ketones 2+ H (Negative) Urine Blood Trace H (Negative) U Epithel Cells (Auto) 10-20 H (0-5) /lpf U Random Total Protein 39.9 H (0-11.9) mg/dl Diagnostic Findings Head CT 10/01/22 17:11 CT head/brain wo con CLINICAL HISTORY: confusion Technique: Contiguous axial CT images of the head were acquired from the base of the skull to the vertex without intravenous contrast administration. Images were viewed in brain, subdural and bone windows. Automated dose lowering techniques and/or adjustment according to patient size were utilized for this exam. Comparison: Comparison is made to CT head 09/28/2021 Findings: Areas of decreased attenuation are present in the periventricular and subcortical white matter bilaterally consistent with small vessel ischemic disease. Generalized cerebral atrophy with commensurate enlargement of the ventricles, sulci, and cisterns is also present. There is no acute intracranial hemorrhage or evidence of acute territorial infarction. No shift of the midline structures, mass effect, or extra-axial abnormalities are shown. Atherosclerotic calcifications are present in the intracranial segments of the internal carotid arteries. Imaged portions of the paranasal sinuses and mastoid air cells are clear. The orbits appear normal. There are no acute fractures of the calvaria or scalp swelling. Impression: No acute intracranial hemorrhage, no evidence of acute territorial infarction or other acute intracranial disease process. ACT 112: Negative or not required by law. Electronically signed by: Sonu Dumont M.D. 10/01/2022 5:58 PM Code Status & VTE Plan Code Status Full code VTE Prophylaxis Plan VTE Prophylaxis will be ordered: Yes Supervising Physician Co-Signing Physician Notes Patient seen and examined, chart reviewed, case discussed with Giuseppe Paz PA-C and I agree with the assessment and plan as above except as otherwise noted Labs and images reviewed History of LEFT nephrectomy. Had had chronic LUTS on flomax and endorses recent voiding difficulty. 2 weeks ago voiding issues recurred but then improved until 3-4 days ago when he developed increased frequency and difficulty initiating voids. Has been drinking a lot of water since then to try and stay hydrated. Last 48 hours progressively weak. Was with confusion x1 in ER, at time of assessment is not confused and answers questions appropriately. Sodium is found to be 110 on admission, glucose is not elevated, creatinine is 1.03 CT-A/P pending with contrast to evaluate for renal disease and malignancy. SSRI held. Serum osm low. Urine sodium and osmolality pending. Following cath did have 2- 300 cc of dark yellow urine drained. UA uninfected appearing diuretic held. 100 cc 3% saline ordered and infusing for transient confusion with hyponatremia of unclear chronicity, last was normal in May. Differential includes obstructive, SIADH with SSRI treatment and potential malignancy. Urine protein is 1+, no evidence of nephrotic syndrome. BMP every 4 hours,Limit 8 mEq sodium change for 24 hours. Saline infusion as needed for symptomatic hyponatremia. If rapid change and concern for osmotic shifts may desmopressin clamp. CThead without acute findings while in ER patient admitted to ICU, disaster or damage control specialist consulted PG Care Time/CCT Total # of Minutes Spent Total Time Spent with Patient: Total time spent is greater than 50% in coordination of care (as documented) at patient's floor/unit and/or counseling patient: [place] [address] INT INP/OBS CARE 3/75MIN Patient Type Established History Comprehensive Exam Comprehensive Medical Decision Making High Complexity Diagnoses Acute hyponatremia E87.1 Severe sleep apnea G47.30 Chronic kidney disease, stage 3a N18.31 BPH (benign prostatic hyperplasia) N40.0 Benign hypertension I10 Anxiety F41.9
--- NOTE | 2022-10-01 18:57 | Critical Care Consultation ---
Date of Consultation October 01, 2022 Assessment & Plan (1) Hyponatremia: (2) Chronic kidney disease, stage 3a: (3) Severe sleep apnea: (4) BPH (benign prostatic hyperplasia): (5) Prediabetes: (6) Solitary right kidney: (7) Hyperlipidemia: (8) Hypertension: (9) Depression with anxiety: Plan Reason Critically Ill: 66 YOM presents to EMD for complaints of muscle fatigue, and drowsiness associated with difficulty urinating x1 week. Admitted to ICU for severe hyponatremia of 110. Neuro - Anxiety/Depression, Lethargy secondary to hyponatremia CAM ICU: Negative - Can continue Fluoxetine, unlikely causative/exacerbating med as he has been on for while- however can consider holding if Cardiac - HTN, HLD - Stable no acute needs - Will hold MAX/ARB and Triamterene/HCTZ while hyponatremic Respiratory - Severe FERNANDA - not acute - Continue home CPAP at 16CM H20 GI - No acute needs RENAL/LYTES - Severe Hyponatremia acute on chronic, hypochlroemia, CKD III, solitary right kidney - Severe Hyposmolar Hyponatremia- likely related to decrease solute intake exacerbated by possible outflow obstruction with difficulty to void and diuretic use and component of hypovolemia - NA 110, Serum OSMO 237- Urine (sent after saline administration)- KYRIE 82 with UOSMO 548 - 3% saline boluses (100-150ml) as needed q4 hours - goal 116-118- if ineffective will bolus 3% plus drip at 45ml/hr - Saline at 80ml per hour - NO FREE WATER- may have 1200ml of powerade/soda/juice - Glucose is 97 and renal function is at baseline - CT scan abdomen/pelvis pending - Hsieh placed reported without difficulty- draining dark agata urine - TSH pending - BPH - Chronic - follow urine output with Hsieh- consider urology follow up as outpatient or inpatient if continues to have difficulty following removal of hsieh ENDO - DMII - ICU hyperglycemic protocol HEME - No acute needs ID - No source of infection mild leukocytosis without fever- follow fever curve await CT abdomen/pelvis- UA without infection LINES/IV ACCESS - PIV/Hsieh Continue use of thes lines DVT PROPHYLAXIS - Heparin 5000 units subq TID, SCDS DISPO: ICU while NA level <115 I have personally spent 45 minutes of critical care time in the direct management of this patient. This is a life/limb threatening event. This includes time spent evaluating patient, direct bedside care, chart review, placing orders, interpretation of diagnostic studies, discussion with consultants, patient, and family members, as well as other required patient management activities. This time is exclusive of all separately billable procedures, and separate from and in addition to any other critical care service time. Thank you for allowing us to participate in the care of this patient. Please refer to my attending physician's documentation for any further recommendations. History of Present Illness Reason for Consultation: Hyponatremia Requesting Physician: Rommel Hauser Attending Physician: Rommel Hauser History of Present Illness 66 YOM with medical history yof: CKD III, Left nephrectomy secondary to transitional cell cancer (2019), FERNANDA-severe (AHI 80 with CPAP 16cm H20), HLD, HTN, DM, Chronic hyponatremia, syncope with loop recorder placed. Patient reports to the EMD today for complaints of fatigue and difficulty urinating. Was found to have NA level of 110 on initial lab work. Patient reports that over the past week or so that he has been having difficulty urinating and feeling like he has to really strain to empty his bladder. He has also been drinking more water to assist with this- although over the past 3-4 days he has had a decrease in oral food and water intake secondary to fatigue and tiredness. He was seen at his PCP office on 09/19/22 for difficulty voiding and urine culture was performed and a PVR obtained with 78 ml reported in bladder- urine culture was negative at that time. He denies other feelings of illness, without joint pains, fevers, sinus congestion, denies early saiety or difficulty swallowing, no seizures reported. In the EMD the patient had routine labs performed- with serum osmo added on that is low at 237 as well as hypochloremia of 77, AST of 116 and tBILI 1.2. UA was with 1+ protein, and ketones 2+ with trace blood. He also had Hsieh placed that was reported as easy placement and is draining dark agata urine. He had CT scan performed of his head that was negative for acute process. Last renal ultrasound was performed in February 09 with normal appearing right kidney, and urinary bladder. Cystoscopy in 2021 with significant proximal enlargement with lateral lobes of prostate with normal bladder and is on tamsulosin. Patient will be admitted for NA correction and monitoring of labs. Free water restriction will be initiated, continue with Hypertonic Saline boluses as needed. Currently appears as decrease solute intake with increase in water intake as well as aggravated by his diuretic use of Triamterene/HCTZ. Patient is FULL CODE Allergies Allergy/AdvReac Type Severity Reaction Status Date / Time No Known Allergies Allergy Mild Verified 07/25/22 10:40 Home Medications Medication Instructions Recorded Confirmed Type cholecalciferol (vitamin D3) 125 125 mcg PO DAILY #30 caps 03/13/20 10/01/22 Rx mcg (5,000 unit) capsule triamterene 37.5 0.5 tab PO DAILY #30 tabs 10/02/21 10/01/22 Rx mg-hydrochlorothiazide 25 mg tablet finasteride 5 mg tablet 5 mg PO DAILY #30 tabs 11/05/21 10/01/22 Rx atenolol 25 mg tablet 25 mg PO DAILY #90 tabs 12/06/21 10/01/22 Rx fluoxetine 20 mg capsule 20 mg PO DAILY #90 caps 12/06/21 10/01/22 Rx simvastatin 20 mg tablet 20 mg PO DAILY #90 tabs 12/06/21 10/01/22 Rx buspirone 10 mg tablet 10 mg PO TID PRN anxiety #270 tabs 01/22/22 10/01/22 Rx losartan 100 mg tablet 100 mg PO DAILY #90 tabs 04/03/22 10/01/22 Rx tamsulosin 0.4 mg capsule 0.4 mg PO HS #90 caps 04/17/22 10/01/22 Rx Patient History Medical History (Updated 10/01/22 @ 21:40 by Oleg Muhammad DO) Chronic kidney disease, stage 3a Cigar smoker Quit in 2018 Hyponatremia Dating back to at least October 2017. Na mid to low 130's. 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 Surgical History History of colonoscopy 2016 History of cystoscopy RECENT 04/06/18. MAC with propofol. No issues. History of herniorrhaphy CHILD History of nephrectomy 06/09/2018. GETA. MAC 4, grade 2 view. 8.0 ETT. No issues. Family History Aunt Family history of diabetes mellitus Mother Malignant melanoma Other Diabetes Denies family history of Ovarian cancer Prostate cancer Myocardial infarction Breast cancer Colorectal cancer Social History Smoking Status: Former smoker Tobacco Type: Cigarettes Age Started Using Tobacco: 20; Age Quit Using Tobacco: 63; packs per day: 0.2; Cigarettes Per Day: 4 CIGS PER DAY X SEVERAL YEARS; Second Hand Exposure: Yes; Do You Dip or Chew Tobacco: No; Tobacco Cessation Education Requested by Patient: No Hx Alcohol Use: No Hx Substance Use: No Preferred Language: Irish Communication Ability: Effective Visual Impairment: No Limitations Polysom Tech Required: No Beliefs That Will Affect Care: None marital status: Current Living Situation: Spouse current occupational status: employed 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 How many Children do You have: 1 Other Information That Helps Us Care for You: No Feels Safe at Home: Yes Safety Concerns: Feels Safe At This Time Childhood Exposure to Second-Hand Smoke: Yes Diet: regular caffeine: Yes (coffee) Dental Care, Regularly: Yes Physical Activity Frequency: 1-2 Times per Week Seatbelt Use: always Sunscreen Use: Yes Assistive Devices: Glasses Review of Systems Review of Systems: REVIEW OF SYSTEMS: Constitutional: (+) increase in Fatigue and drowsiness, No fever, sweats or chills Eyes: No diplopia, no worsening or blurred vision ENT: normal hearing, no trouble swallowing Respiratory: (+) sleep apnea, No cough, sputum, dyspnea at rest or on exertion Cardiovascular: No chest pain, tightness or palpitations Abdomen: No pain, nausea, vomiting, diarrhea or constipation (+) difficulty voiding Musculoskeletal: No joint pain, calf pain, swelling Neurologic: No weakness, numbness/tingling, or balance problems Psychiatric: No anxiety or depression Skin: No rash or itch Physical Exam Physical Exam: PHYSICAL EXAM: General: awake, alert, no apparent distress Head: Normocephalic, atraumatic ENT: PERRL, EOMI, no pharyngeal exudate, mucous membranes moist Neuro: AAO x 3, speech clear and appropriate, strength intact bilaterally 5/5, sensation intact and equal all extremities and dermatomes, no pronator drift Chest: equal rise and fall of the chest, no accessory muscle use, no heaves or thrills, Clear to auscultation, on room air, Cardiac: Regular rate and rhythm, telemetry reviewed, skin warm dry, cap refill <3 seconds, peripheral pulses +2 no JVD, no murmur, no edema GI: NABS x 4 quadrants, soft, nontender to palpation, no rebound, guarding or tenderness : Hsieh to gravity draining dark agata urine Extremities: Normal inspection, no peripheral edema or erythema, calfs nontender to palpation Psych: Normal mood and affect Skin: no rash or erythema Results & Data Results & Data Vital Signs (Past 12 Hours) Vital Signs Temp Pulse Pulse Resp BP BP Pulse Ox 10/01/22 17:56 65 10/01/22 17:40 77 18 161/78 H 96 10/01/22 16:44 36.7 C 82 20 169/70 H 98 O2 Del Method 10/01/22 17:56 10/01/22 17:40 Room Air 10/01/22 16:44 Room Air Laboratory Results Abnormal lab results 10/01/22 10/01/22 10/01/22 Range/Units 17:31 17:31 17:31 WBC 13.07 H (4.8-10.8) K/ul RBC 4.03 L (4.70-6.10) M/uL Hgb 12.2 L (14.0-18.0) g/dl Hct 33.5 L (42.0-52.0) % MCHC 36.4 H (32.0-36.0) g/dL Neut # (Auto) 11.19 H (1.40-6.50) K/uL Lymph # (Auto) 0.63 L (1.2-3.4) K/uL Marshall # (Auto) 1.14 H (0.11-0.59) K/uL Sodium 110 L* (136-145) mmol/L Chloride 77 L (98-107) mmol/L POC Glucose (70-99) mg/dl Osmolality 237 L* (280-300) mOsm/kg Total Bilirubin 1.2 H (0.2-1.0) mg/dl AST 116 H (13-39) U/L Urine Protein (Negative) Urine Ketones (Negative) Urine Blood (Negative) U Epithel Cells (Auto) (0-5) /lpf 10/01/22 10/01/22 Range/Units 18:35 18:43 WBC (4.8-10.8) K/ul RBC (4.70-6.10) M/uL Hgb (14.0-18.0) g/dl Hct (42.0-52.0) % MCHC (32.0-36.0) g/dL Neut # (Auto) (1.40-6.50) K/uL Lymph # (Auto) (1.2-3.4) K/uL Marshall # (Auto) (0.11-0.59) K/uL Sodium (136-145) mmol/L Chloride (98-107) mmol/L POC Glucose 102 H (70-99) mg/dl Osmolality (280-300) mOsm/kg Total Bilirubin (0.2-1.0) mg/dl AST (13-39) U/L Urine Protein 1+ H (Negative) Urine Ketones 2+ H (Negative) Urine Blood Trace H (Negative) U Epithel Cells (Auto) 10-20 H (0-5) /lpf Diagnostic Findings Head CT 10/01/22 17:11 CT head/brain wo con CLINICAL HISTORY: confusion Technique: Contiguous axial CT images of the head were acquired from the base of the skull to the vertex without intravenous contrast administration. Images were viewed in brain, subdural and bone windows. Automated dose lowering techniques and/or adjustment according to patient size were utilized for this exam. Comparison: Comparison is made to CT head 09/28/2021 Findings: Areas of decreased attenuation are present in the periventricular and subcortical white matter bilaterally consistent with small vessel ischemic disease. Generalized cerebral atrophy with commensurate enlargement of the ventricles, sulci, and cisterns is also present. There is no acute intracranial hemorrhage or evidence of acute territorial infarction. No shift of the midline structures, mass effect, or extra-axial abnormalities are shown. Atherosclerotic calcifications are present in the intracranial segments of the internal carotid arteries. Imaged portions of the paranasal sinuses and mastoid air cells are clear. The orbits appear normal. There are no acute fractures of the calvaria or scalp swelling. Impression: No acute intracranial hemorrhage, no evidence of acute territorial infarction or other acute intracranial disease process. ACT 112: Negative or not required by law. Electronically signed by: Sonu Dumont M.D. 10/01/2022 5:58 PM Medications Administered Discontinued Medications Sodium Chloride (Nss) 500 mls @ 999 mls/hr IV .Q31M ONE Stop: 10/01/22 17:43 Last Infusion: 10/01/22 18:43 Dose: 0 mls/hr Documented By: Admin: 10/01/22 17:39 Dose: 999 mls/hr Documented By: LYNDSEY Sodium Chloride (Hypertonic Saline 3%) 100 mls @ 600 mls/hr IV .Q10M ONE; Protocol Stop: 10/01/22 18:41 Last Admin: 10/01/22 18:36 Dose: 600 mls/hr Documented By: LYNDSEY Co-signed By: SMITH Potassium Chloride (Potassium Chloride Crtab 20 Meq Tabcr) 40 meq PO NOW STA Stop: 10/01/22 19:16 Last Admin: 10/01/22 19:29 Dose: 40 meq Documented By: SHANNEN Coding Level of Care Code 61019 CRITICAL CARE 1ST 30-74M Diagnoses Hyponatremia E87.1 Chronic kidney disease, stage 3a N18.31 Severe sleep apnea G47.30 BPH (benign prostatic hyperplasia) N40.0 Prediabetes R73.03 Solitary right kidney Q60.0 Hyperlipidemia E78.5 Hypertension I10 Depression with anxiety F41.8
[2022-10-01 19:02] LABS: Appearance Urine Clear (Clear); Bacteria Urine Automated Negative (Negative); Bilirubin Urine Negative (Negative); Blood Urine Trace (Negative); Cast Urine Automated 0 /lpf (0-5); Color Urine Yellow; Glucose Urine UA Negative (Negative); Ketones Urine 2+ (Negative); Leukocyte Esterase Urine Negative (Negative); Nitrite Urine Negative (Negative); Protein Urine 1+ (Negative); RBC Urine Automated 0-4 /hpf (0-4); Specific Gravity Urine 1.017 (1.000-1.030); Urobilinogen Urine Negative (Negative); pH Urine 6.5 (4.5-7.5)
[2022-10-01] MEDS ORDERED: POTASSIUM CHLORIDE CRTAB 20 MEQ TABCR PO STA (19:15)
[2022-10-01 19:36] LABS: Total Protein Urine Random 39.9 mg/dl (0-11.9)
[2022-10-01 19:42] LABS: Creatinine Urine Random 87.4 mg/dl; Protein Creatinine Ratio Urine 0.5 (0-0.2)
[2022-10-01] MEDS ORDERED: OPTIRAY 320 100ml IV ONE (20:37)
--- NOTE | 2022-10-01 20:53 | CT Scan Report ---
Exam(s): CT ABDOMEN + PELVIS With Contrast IV Amt: 90 ml optiray 320 EXAM: CT Abdomen and Pelvis With Intravenous Contrast CLINICAL HISTORY: Reason for exam: Hx od renal cancer, monitoring for obstruction. TECHNIQUE: Axial computed tomography images of the abdomen and pelvis with intravenous contrast. CTDI is 28.14 mGy and DLP is 1330.96 mGy-cm. Automated exposure control was utilized for the study. A dose lowering technique was utilized adhering to the principles of ALARA. CONTRAST: Patient received 90 ml optiray 320 of IV contrast COMPARISON: No relevant prior studies available. FINDINGS: Lung bases: Unremarkable. No mass. No consolidation. ABDOMEN: Liver: Unremarkable. No mass. Gallbladder and bile ducts: Unremarkable. No calcified stones. No ductal dilation. Pancreas: Unremarkable. No mass. No ductal dilation. Spleen: Calcified splenic granulomas. Adrenals: Unremarkable. No mass. Kidneys and ureters: LEFT nephrectomy. No hydronephrosis or delayed nephrogram. Stomach and bowel: Diverticulosis, without acute diverticulitis. No small bowel obstruction. No free intraperitoneal air. PELVIS: Appendix: No findings to suggest acute appendicitis. Bladder: Decompressed urinary bladder, which contains a Sanchez catheter. Reproductive: Unremarkable as visualized. ABDOMEN and PELVIS: Intraperitoneal space: Unremarkable. No free air. No significant fluid collection. Bones/joints: Degenerative changes of the spine. No acute fracture. No dislocation. Soft tissues: Unremarkable. Vasculature: Atherosclerotic changes of the aorta. No abdominal aortic aneurysm. Lymph nodes: Unremarkable. No enlarged lymph nodes. IMPRESSION: 1. LEFT nephrectomy. 2. Decompressed urinary bladder, which contains a Sanchez catheter. 3. Diverticulosis, without acute diverticulitis. No small bowel obstruction. No free intraperitoneal air. Electronically signed by: Caesar Mosher MD 10/01/22 20:52 PM
[2022-10-01 22:34] LABS: Calcium 8.4 mg/dl (8.6-10.3); Creatinine Clr Calc Pharmacy 92.5 ml/min; Est GFR (African American) 85.5 ml/min; Est GFR (Non-African American) 73.8 ml/min; Potassium 3.7 mmol/L (3.5-5.1)
[2022-10-01] MEDS ORDERED: SODIUM CHLORIDE 3 % 150 ML IV ONE (22:35)
[2022-10-01] MEDS: SODIUM CHLORIDE 0.9% 1000ML 1,000 ML IV SCH (23:48)
[2022-10-02] MEDS ORDERED: POTASSIUM CHLORIDE CRTAB 20 MEQ TABCR PO STA (00:13)
[2022-10-02] MEDS: ICU Protocol for HYPERglycemia SCH ×5 (01:29→21:25)
[2022-10-02] MEDS: TAMSULOSIN HCL 0.4 MG CAP PO SCH ×2 (01:29→20:52)
[2022-10-02] MEDS: HEPARIN SOD 5,000 UNIT/0.5 ML VIAL SQ SCH ×4 (01:29→20:53)
[2022-10-02 04:22] LABS: Basophils # (auto) 0.01 K/uL (0-0.2); Basophils % (auto) 0.1 %; Eosinophils # (auto) 0.01 K/uL (0-0.50); Eosinophils % (auto) 0.1 %; Hematocrit (blood only) 32.3 % (42.0-52.0); Hemoglobin 11.7 g/dl (14.0-18.0); Immature Granulocytes # (auto) 0.05 K/uL (0.01-0.20); Immature Granulocytes % (auto) 0.4 %; Lymphocytes % (auto) 4.4 %; Mean Corpuscular Hemoglobin 30.6 pg (25.0-34.0); Mean Corpuscular Hgb Conc 36.2 g/dL (32.0-36.0); Mean Corpuscular Volume 84.6 fL (80.0-100.0); Mean Platelet Volume 9.8 fL (9.4-12.4); Monocytes # (auto) 0.88 K/uL (0.11-0.59); Monocytes % (auto) 7.8 %; Neutrophils % (auto) 87.2 %; Platelet Count 247 K/uL (130-400); RDW Coefficient of Variation 12.2 % (11.5-14.5); RDW Standard Deviation 36.9 fL (36.4-46.3); Red Blood Count 3.82 M/uL (4.70-6.10); White Blood Count 11.35 K/ul (4.8-10.8)
[2022-10-02 04:32] LABS: BUN Creatinine Ratio 15.2 (10-20); Calcium 8.7 mg/dl (8.6-10.3); Creatinine Clr Calc Pharmacy 87.6 ml/min; Potassium 4.2 mmol/L (3.5-5.1)
--- NOTE | 2022-10-02 08:26 | Critical Care Progress Note ---
Date of Service October 02, 2022 Assessment & Plan (1) Hyponatremia: (2) Chronic kidney disease, stage 3a: (3) Severe sleep apnea: (4) BPH (benign prostatic hyperplasia): (5) Prediabetes: (6) Solitary right kidney: (7) Hyperlipidemia: (8) Hypertension: (9) Depression with anxiety: Plan Reason Critically Ill: severe hyponatremia of 110. Neuro - Anxiety/Depression, Lethargy secondary to hyponatremia CAM ICU: Negative - Can continue Fluoxetine, unlikely causative/exacerbating med as he has been on for while- however can consider holding if Cardiac - HTN, HLD - Stable no acute needs - Will hold MAX/ARB and Triamterene/HCTZ while hyponatremic Respiratory - Severe FERNANDA - not acute - Continue home CPAP at 16CM H20 GI - No acute needs RENAL/LYTES - Severe Hyponatremia acute on chronic, hypochlroemia, CKD III, solitary right kidney -Sodium increased to 120, will administer DDAVP: 2 mcg IV every 8 hours for 2 doses and continue to trend sodiums -Allow for sips and chips -If sodium continues to climb would give boluses of D5W or encourage free water - BPH - Chronic - follow urine output with Hsieh- consider urology follow up as outpatient or inpatient if continues to have difficulty following removal of hsieh ENDO - DMII - ICU hyperglycemic protocol HEME - No acute needs ID - No source of infection mild leukocytosis without fever- follow fever curve await CT abdomen/pelvis- UA without infection LINES/IV ACCESS - PIV/Hsieh Continue use of thes lines DVT PROPHYLAXIS - Heparin 5000 units subq TID, SCDS DISPO: ICU I have personally spent 35 minutes of critical care time in the direct management of this patient. This is a life/limb threatening event. This includes time spent evaluating patient, direct bedside care, chart review, placing orders, interpretation of diagnostic studies, discussion with consultants, patient, and family members, as well as other required patient management activities. This time is exclusive of all separately billable procedures, and separate from and in addition to any other critical care service time. Admission and Anticipated Discharge Date Admission Date: October 01, 2022 Subjective Patient without significant complaints. Feels normal. No dizziness lightheadedness no nausea no vomiting Physical Exam Physical Exam: General: Alert. nontoxic. Skin: Warm, dry, Head: Atraumatic Ears, nose, mouth and throat: airway patent Cardiovascular: Normal peripheral perfusion Respiratory: no respiratory distress Gastrointestinal: Non distended Musculoskeletal: No deformity Results & Data Results & Data Vital Signs (Past 12 Hours) Vital Signs Temp Pulse Pulse Resp BP BP Pulse Ox 10/02/22 07:38 10/02/22 06:30 57 L 18 99 10/02/22 06:15 57 L 21 98 10/02/22 06:02 66 20 94 10/02/22 06:02 104/61 10/02/22 06:00 56 L 14 98 10/02/22 05:45 58 L 18 97 10/02/22 05:31 58 L 21 97 10/02/22 05:31 129/55 L 10/02/22 05:30 58 L 19 98 10/02/22 05:15 55 L 16 97 10/02/22 05:01 61 21 98 10/02/22 05:01 150/63 H 10/02/22 05:00 62 19 99 10/02/22 04:45 62 20 95 10/02/22 04:30 57 L 18 100 10/02/22 04:30 128/74 10/02/22 04:22 151/62 H 10/02/22 04:22 59 L 16 100 10/02/22 04:15 60 19 98 10/02/22 04:00 69 12 97 10/02/22 03:45 59 L 22 98 10/02/22 03:31 55 L 22 96 10/02/22 03:31 124/72 10/02/22 03:30 56 L 17 98 10/02/22 03:15 51 L 18 99 10/02/22 03:01 133/60 10/02/22 03:01 57 L 24 97 10/02/22 03:00 56 L 18 98 10/02/22 02:45 54 L 18 99 10/02/22 03:43 55 L 21 98 10/02/22 02:31 129/60 10/02/22 02:31 55 L 18 96 10/02/22 02:30 55 L 22 99 10/02/22 02:15 60 13 99 10/02/22 02:01 115/45 L 10/02/22 02:01 42 L 12 92 10/02/22 02:00 53 L 23 96 10/02/22 01:45 60 23 98 06/14/23 04:21 37.5 C 10/02/22 01:31 149/59 H 10/02/22 01:31 58 L 25 H 94 10/02/22 01:30 58 L 19 97 10/02/22 01:15 64 23 97 10/02/22 01:01 61 19 96 10/02/22 01:01 123/55 L 10/02/22 01:00 64 20 99 10/02/22 00:45 62 20 99 10/02/22 00:31 62 21 98 10/02/22 00:31 148/69 H 10/02/22 00:30 64 18 99 10/02/22 00:18 66 16 97 10/02/22 00:18 135/69 10/02/22 00:15 66 24 97 10/02/22 00:00 63 23 99 10/01/22 23:45 64 20 99 10/01/22 23:41 67 28 H 99 10/01/22 23:41 160/73 H 10/02/22 00:30 63 21 99 10/01/22 23:46 64 10/02/22 00:00 10/01/22 23:00 36.4 C L 67 16 160/73 H 98 10/01/22 23:02 62 20 139/57 L 99 10/01/22 22:45 58 L 20 118/69 98 10/01/22 21:30 63 24 144/60 H 90 10/01/22 20:45 68 26 H 154/70 H 95 10/01/22 22:26 60 26 H 99 10/01/22 22:21 36 L 10/01/22 21:58 63 O2 Del Method O2 Flow Rate FiO2 10/02/22 07:38 Nasal Cannula 2 10/02/22 06:30 10/02/22 06:15 10/02/22 06:02 10/02/22 06:02 10/02/22 06:00 10/02/22 05:45 10/02/22 05:31 10/02/22 05:31 10/02/22 05:30 10/02/22 05:15 10/02/22 05:01 10/02/22 05:01 10/02/22 05:00 10/02/22 04:45 10/02/22 04:30 10/02/22 04:30 10/02/22 04:22 10/02/22 04:22 10/02/22 04:15 10/02/22 04:00 10/02/22 03:45 10/02/22 03:31 10/02/22 03:31 10/02/22 03:30 10/02/22 03:15 10/02/22 03:01 10/02/22 03:01 10/02/22 03:00 10/02/22 02:45 10/02/22 03:43 2 10/02/22 02:31 10/02/22 02:31 10/02/22 02:30 10/02/22 02:15 10/02/22 02:01 10/02/22 02:01 10/02/22 02:00 10/02/22 01:45 10/02/22 04:21 10/02/22 01:31 10/02/22 01:31 10/02/22 01:30 10/02/22 01:15 10/02/22 01:01 10/02/22 01:01 10/02/22 01:00 10/02/22 00:45 10/02/22 00:31 10/02/22 00:31 10/02/22 00:30 10/02/22 00:18 10/02/22 00:18 10/02/22 00:15 10/02/22 00:00 10/01/22 23:45 10/01/22 23:41 10/01/22 23:41 10/02/22 00:30 30 10/01/22 23:46 10/02/22 00:00 Nasal Cannula 2 10/01/22 23:00 Nasal Cannula 2 10/01/22 23:02 10/01/22 22:45 10/01/22 21:30 10/01/22 20:45 10/01/22 22:26 30 10/01/22 22:21 10/01/22 21:58 Critical Care Results & Data Vital Signs (Past 12 Hours) Vital Signs Temp Pulse Pulse Resp BP BP Pulse Ox 10/02/22 07:38 10/02/22 06:30 57 L 18 99 10/02/22 06:15 57 L 21 98 10/02/22 06:02 66 20 94 10/02/22 06:02 104/61 10/02/22 06:00 56 L 14 98 10/02/22 05:45 58 L 18 97 10/02/22 05:31 58 L 21 97 10/02/22 05:31 129/55 L 10/02/22 05:30 58 L 19 98 10/02/22 05:15 55 L 16 97 10/02/22 05:01 61 21 98 10/02/22 05:01 150/63 H 10/02/22 05:00 62 19 99 10/02/22 04:45 62 20 95 10/02/22 04:30 57 L 18 100 10/02/22 04:30 128/74 10/02/22 04:22 151/62 H 10/02/22 04:22 59 L 16 100 10/02/22 04:15 60 19 98 10/02/22 04:00 69 12 97 10/02/22 03:45 59 L 22 98 10/02/22 03:31 55 L 22 96 10/02/22 03:31 124/72 10/02/22 03:30 56 L 17 98 10/02/22 03:15 51 L 18 99 10/02/22 03:01 133/60 10/02/22 03:01 57 L 24 97 10/02/22 03:00 56 L 18 98 10/02/22 02:45 54 L 18 99 10/02/22 03:43 55 L 21 98 10/02/22 02:31 129/60 10/02/22 02:31 55 L 18 96 10/02/22 02:30 55 L 22 99 10/02/22 02:15 60 13 99 10/02/22 02:01 115/45 L 10/02/22 02:01 42 L 12 92 10/02/22 02:00 53 L 23 96 10/02/22 01:45 60 23 98 10/02/22 04:21 37.5 C 10/02/22 01:31 149/59 H 10/02/22 01:31 58 L 25 H 94 10/02/22 01:30 58 L 19 97 10/02/22 01:15 64 23 97 10/02/22 01:01 61 19 96 10/02/22 01:01 123/55 L 10/02/22 01:00 64 20 99 10/02/22 00:45 62 20 99 10/02/22 00:31 62 21 98 10/02/22 00:31 148/69 H 10/02/22 00:30 64 18 99 10/02/22 00:18 66 16 97 10/02/22 00:18 135/69 10/02/22 00:15 66 24 97 10/02/22 00:00 63 23 99 10/01/22 23:45 64 20 99 10/01/22 23:41 67 28 H 99 10/01/22 23:41 160/73 H 10/02/22 00:30 63 21 99 10/01/22 23:46 64 10/02/22 00:00 10/01/22 23:00 36.4 C L 67 16 160/73 H 98 10/01/22 23:02 62 20 139/57 L 99 10/01/22 22:45 58 L 20 118/69 98 10/01/22 21:30 63 24 144/60 H 90 10/01/22 20:45 68 26 H 154/70 H 95 10/01/22 22:26 60 26 H 99 10/01/22 22:21 36 L 10/01/22 21:58 63 O2 Del Method O2 Flow Rate FiO2 10/02/22 07:38 Nasal Cannula 2 10/02/22 06:30 10/02/22 06:15 10/02/22 06:02 10/02/22 06:02 10/02/22 06:00 10/02/22 05:45 10/02/22 05:31 10/02/22 05:31 10/02/22 05:30 10/02/22 05:15 10/02/22 05:01 10/02/22 05:01 10/02/22 05:00 10/02/22 04:45 10/02/22 04:30 10/02/22 04:30 10/02/22 04:22 10/02/22 04:22 10/02/22 04:15 10/02/22 04:00 10/02/22 03:45 10/02/22 03:31 10/02/22 03:31 10/02/22 03:30 10/02/22 03:15 10/02/22 03:01 10/02/22 03:01 10/02/22 03:00 10/02/22 02:45 10/02/22 03:43 2 10/02/22 02:31 10/02/22 02:31 10/02/22 02:30 10/02/22 02:15 10/02/22 02:01 10/02/22 02:01 10/02/22 02:00 10/02/22 01:45 10/02/22 04:21 10/02/22 01:31 10/02/22 01:31 10/02/22 01:30 10/02/22 01:15 10/02/22 01:01 10/02/22 01:01 10/02/22 01:00 10/02/22 00:45 10/02/22 00:31 10/02/22 00:31 10/02/22 00:30 10/02/22 00:18 10/02/22 00:18 10/02/22 00:15 10/02/22 00:00 10/01/22 23:45 10/01/22 23:41 10/01/22 23:41 10/02/22 00:30 30 10/01/22 23:46 10/02/22 00:00 Nasal Cannula 2 10/01/22 23:00 Nasal Cannula 2 10/01/22 23:02 10/01/22 22:45 10/01/22 21:30 10/01/22 20:45 10/01/22 22:26 30 10/01/22 22:21 10/01/22 21:58 Lab & Micro Results (Past 24 Hours) RBC 3.82 M/uL (4.70-6.10) L 10/02/22 WBC 11.35 K/ul (4.8-10.8) H 10/02/22 Hgb 11.7 g/dl (14.0-18.0) L 10/02/22 Hct 32.3 % (42.0-52.0) L 10/02/22 MCV 84.6 fL (80.0-100.0) 10/02/22 MCH 30.6 pg (25.0-34.0) 10/02/22 MCHC 36.2 g/dL (32.0-36.0) H 10/02/22 RDW Standard Deviation 36.9 fL (36.4-46.3) 10/02/22 RDW Coefficient of Variation 12.2 % (11.5-14.5) 10/02/22 Plt Count 247 K/uL (130-400) 10/02/22 MPV 9.8 fL (9.4-12.4) 10/02/22 Neutrophils (%) (Auto) 87.2 % 10/02/22 Lymphocytes (%) (Auto) 4.4 % 10/02/22 Monocytes # (Auto) 0.88 K/uL (0.11-0.59) H 10/02/22 Eosinophils # (Auto) 0.01 K/uL (0-0.50) 10/02/22 Immature Granulocyte % (Auto) 0.4 % 10/02/22 Neutrophils # (Auto) 9.90 K/uL (1.40-6.50) H 10/02/22 Lymphocytes # (Auto) 0.50 K/uL (1.2-3.4) L 10/02/22 Monocytes # (Auto) 0.88 K/uL (0.11-0.59) H 10/02/22 Eosinophils # (Auto) 0.01 K/uL (0-0.50) 10/02/22 Basophils # (Auto) 0.01 K/uL (0-0.2) 10/02/22 Immature Granulocyte # (Auto) 0.05 K/uL (0.01-0.20) 3 Na 120 mmol/L (136-145) L 10/02/22 K 4.0 mmol/L (3.5-5.1) 10/02/22 Cl 89 mmol/L (98-107) L 10/02/22 CO2 23 mmol/L (21-32) 10/02/22 Anion Gap 8 (3-11) 10/02/22 BUN 16 mg/dl (6-23) 10/02/22 Creatinine 1.08 mg/dl (0.6-1.4) 10/02/22 Estimated GFR ( Amer) 83.6 ml/min 10/02/22 Estimated GFR (Non-Af Amer) 72.2 ml/min 10/02/22 BUN/Creatinine Ratio 14.8 (10-20) 10/02/22 Glu 92 mg/dl (70-99(Fasting)) 10/02/22 Ca 8.4 mg/dl (8.6-10.3) L 10/02/22 Total Bilirubin 1.2 mg/dl (0.2-1.0) H 10/01/22 AST 116 U/L (13-39) H 10/01/22 ALT 34 U/L (7-52) 10/01/22 Alkaline Phosphatase 86 U/L (34-104) 10/01/22 TP 6.9 gm/dl (6.0-8.3) 10/01/22 Albumin 4.3 gm/dl (3.4-5.0) 10/01/22 Globulin 2.6 gm/dl (2.5-4.0) 10/01/22 Albumin/Globulin Ratio 1.7 (0.9-2) 10/01/22 Mg 2.0 mg/dl (1.7-2.4) 10/02/22 03:56 Calcium Level 8.4 mg/dl (8.6-10.3) L 10/02/22 13:01 Diagnostic Findings (Past 24 Hours) Head CT 10/01/22 17:11 CT head/brain wo con CLINICAL HISTORY: confusion Technique: Contiguous axial CT images of the head were acquired from the base of the skull to the vertex without intravenous contrast administration. Images were viewed in brain, subdural and bone windows. Automated dose lowering techniques and/or adjustment according to patient size were utilized for this exam. Comparison: Comparison is made to CT head 09/28/2021 Findings: Areas of decreased attenuation are present in the periventricular and subcortical white matter bilaterally consistent with small vessel ischemic disease. Generalized cerebral atrophy with commensurate enlargement of the ventricles, sulci, and cisterns is also present. There is no acute intracranial hemorrhage or evidence of acute territorial infarction. No shift of the midline structures, mass effect, or extra-axial abnormalities are shown. Atherosclerotic calcifications are present in the intracranial segments of the internal carotid arteries. Imaged portions of the paranasal sinuses and mastoid air cells are clear. The orbits appear normal. There are no acute fractures of the calvaria or scalp swelling. Impression: No acute intracranial hemorrhage, no evidence of acute territorial infarction or other acute intracranial disease process. ACT 112: Negative or not required by law. Electronically signed by: Sonu Dumont M.D. 10/01/2022 5:58 PM Abdomen/Pelvis CT 10/01/22 19:19 Exam(s): CT ABDOMEN + PELVIS With Contrast IV Amt: 90 ml optiray 320 EXAM: CT Abdomen and Pelvis With Intravenous Contrast CLINICAL HISTORY: Reason for exam: Hx od renal cancer, monitoring for obstruction. TECHNIQUE: Axial computed tomography images of the abdomen and pelvis with intravenous contrast. CTDI is 28.14 mGy and DLP is 1330.96 mGy-cm. Automated exposure control was utilized for the study. A dose lowering technique was utilized adhering to the principles of ALARA. CONTRAST: Patient received 90 ml optiray 320 of IV contrast COMPARISON: No relevant prior studies available. FINDINGS: Lung bases: Unremarkable. No mass. No consolidation. ABDOMEN: Liver: Unremarkable. No mass. Gallbladder and bile ducts: Unremarkable. No calcified stones. No ductal dilation. Pancreas: Unremarkable. No mass. No ductal dilation. Spleen: Calcified splenic granulomas. Adrenals: Unremarkable. No mass. Kidneys and ureters: LEFT nephrectomy. No hydronephrosis or delayed nephrogram. Stomach and bowel: Diverticulosis, without acute diverticulitis. No small bowel obstruction. No free intraperitoneal air. PELVIS: Appendix: No findings to suggest acute appendicitis. Bladder: Decompressed urinary bladder, which contains a Hsieh catheter. Reproductive: Unremarkable as visualized. ABDOMEN and PELVIS: Intraperitoneal space: Unremarkable. No free air. No significant fluid collection. Bones/joints: Degenerative changes of the spine. No acute fracture. No dislocation. Soft tissues: Unremarkable. Vasculature: Atherosclerotic changes of the aorta. No abdominal aortic aneurysm. Lymph nodes: Unremarkable. No enlarged lymph nodes. IMPRESSION: 1. LEFT nephrectomy. 2. Decompressed urinary bladder, which contains a Hsieh catheter. 3. Diverticulosis, without acute diverticulitis. No small bowel obstruction. No free intraperitoneal air. Electronically signed by: Caesar Mosher MD 10/01/22 20:52 PM I & O Totals 24 Hours 10/01/22 10/02/22 10/03/22 06:59 06:59 06:59 Intake Total 750 / 750 Output Total 1410 / 1410 Balance -660 / -660 Cumulative 10/01/22 16:39 thru 10/02/22 06:37 Intake Total 750 Output Total 1410 Balance -660 RT Ventilator Mngmt (Last Documented) Ventilator Ordered Settings Respiratory Rate 18 10/02/22 06:30 Fraction of Inspired Oxygen 30 10/02/22 00:30 Ventilator - PT Measurements Respiratory Rate 18 Coding Level of Care Code 48341 CRITICAL CARE 1ST 30-74M Diagnoses Hyponatremia E87.1 Chronic kidney disease, stage 3a N18.31 Severe sleep apnea G47.30 BPH (benign prostatic hyperplasia) N40.0 Prediabetes R73.03 Solitary right kidney Q60.0 Hyperlipidemia E78.5 Hypertension I10 Depression with anxiety F41.8
[2022-10-02] MEDS: ATENOLOL 25 MG TABLET PO SCH (08:43)
[2022-10-02] MEDS: SODIUM CHLORIDE 0.9% 1000ML 1,000 ML IV SCH ×2 (08:43→21:55)
[2022-10-02] MEDS: SIMVASTATIN 20 MG TAB PO SCH (08:43)
[2022-10-02] MEDS: LOSARTAN POTASSIUM 50 MG TAB PO SCH (08:43)
[2022-10-02] MEDS: FINASTERIDE 5 MG TAB PO SCH (08:44)
[2022-10-02 09:30] LABS: Calcium 8.7 mg/dl (8.6-10.3); Creatinine Clr Calc Pharmacy 91.7 ml/min; Est GFR (African American) 84.6 ml/min; Potassium 4.1 mmol/L (3.5-5.1)
--- NOTE | 2022-10-02 11:10 | Nephrology Consultation ---
Date of Consultation October 02, 2022 Assessment & Plan (1) Hyponatremia: * Severe hyponatremia w/ Na < 120 accompanied by mental status changes * Time course is unknown, must assume chronic (> 48 hours), requires cautious correction (target is to raise serum sodium by only 6-8 mmol/L every 24 hours) * Rate of correction at this time is appropriate (presenting serum sodium 110 mmol/L 10/01/22 at 1700 hrs) * ICU team has been managing hyponatremia appropriately w/ 3% NaCl. They have ordered serial PRP. Will defer correction of serum sodium to them * Once serum Na > 125 mmol/L consider transition from 3% NaCl to oral NaCl tablets * Agree w/ stopping Triamterene-HCTZ. I have listed thiazides as a "drug allerg y" in the EMR due to hyponatremia (2) Chronic kidney disease, stage III (moderate): * CKD stage G3a/A3 (moderate impairment). Baseline Cr 1.3-1.4 w/EGFR 51 cc/min. UPCR 0.5. He is s/p L laparoscopic robotic assisted radical nephroureterectomy 06/09. Histology was c/w transitional cell CA confined to the kidney * Kidney function is stable at this time. Volume status and electrolyte balance remain acceptable * Monitor PRP, UO * Will continue to follow peripherally (3) Hypertension: * BP currently acceptable * Triamterene-HCTZ stopped due to hyponatremia (4) BPH (benign prostatic hyperplasia): * Patient likely has CHERY related to BPH * Continue Tamsulosin * Will need PVR checked after Sanchez catheter removed. If PVR > 100 cc, will need Urology evaluation History of Present Illness Reason for Consultation: Hyponatremia Attending Physician: Trey Tucker MD History of Present Illness Mr. Peter is a 66 year old white male who is seen at the request of the [facility] Hospitalist Service for evaluation of hyponatremia. Information for the HPI is obtained from patient interview and is summarized as follows: Mr. Peter has CKD stage G3a/A3 (moderate impairment). Baseline Cr 1.3-1.4 w/EGFR 51 cc/min. UPCR 0.5. He is s/p L laparoscopic robotic assisted radical nephroureterectomy 06/09. Histology was c/w transitional cell CA confined to the kidney. His primary Bookkeeping Teacher has been Dr. Rajput. Mr. Peter's medical history is also significant for HTN managed w/ Atenolol, Losartan and Triamterene-HCTZ, BPH managed w/ Tamsulosin, former smoker, emphysema, and FERNANDA. Mr. Peter reports difficulty voiding accompanied by bilateral lower quadrant abdominal pain over the last 7 days. Last evening he was notably weak and confused. He was brought to the [facility] by his where laboratory studies revealed serum sodium 110 mmol/L. He appeared clinically dehydrated. 1L 0.9NS was infused in the EMD. Patient was admitted to the ICU and received 3% NaCl 150 cc bolus followed by 100 cc bolus. Triamterene-HCTZ was stopped. Serum sodium has risen to 116 mmol/L and patient is now alert and oriented x3. Sanchez catheter has been placed and is draining clear, yellow urine. 10/01/[address] reveals a L nephrectomy. Urinary bladder was decompressed by Sanchez catheter. No hydronephrosis was reported. Allergies Allergy/AdvReac Type Severity Reaction Status Date / Time Thiazides AdvReac Severe hyponatremi Verified 10/02/22 13:32 a Home Medications Medication Instructions Recorded Confirmed Type cholecalciferol (vitamin D3) 125 125 mcg PO DAILY #30 caps 03/13/20 10/01/22 Rx mcg (5,000 unit) capsule triamterene 37.5 0.5 tab PO DAILY #30 tabs 10/02/21 10/01/22 Rx mg-hydrochlorothiazide 25 mg tablet finasteride 5 mg tablet 5 mg PO DAILY #30 tabs 11/05/21 10/01/22 Rx atenolol 25 mg tablet 25 mg PO DAILY #90 tabs 12/06/21 10/01/22 Rx fluoxetine 20 mg capsule 20 mg PO DAILY #90 caps 12/06/21 10/01/22 Rx simvastatin 20 mg tablet 20 mg PO DAILY #90 tabs 12/06/21 10/01/22 Rx buspirone 10 mg tablet 10 mg PO TID PRN anxiety #270 tabs 01/22/22 10/01/22 Rx losartan 100 mg tablet 100 mg PO DAILY #90 tabs 04/03/22 10/01/22 Rx tamsulosin 0.4 mg capsule 0.4 mg PO HS #90 caps 04/17/22 10/01/22 Rx Patient History Medical History Chronic kidney disease, stage 3a Cigar smoker Quit in 2018 Hyponatremia Dating back to at least October 2017. Na mid to low 130's. 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 Surgical History History of colonoscopy 2016 History of cystoscopy RECENT 04/06/18. MAC with propofol. No issues. History of herniorrhaphy CHILD History of nephrectomy 06/09/2018. GETA. MAC 4, grade 2 view. 8.0 ETT. No issues. Family History Aunt Family history of diabetes mellitus Mother Malignant melanoma Other Diabetes Denies family history of Ovarian cancer Prostate cancer Myocardial infarction Breast cancer Colorectal cancer Social History Smoking Status: Former smoker Tobacco Type: Cigarettes Age Started Using Tobacco: 20; Age Quit Using Tobacco: 63; packs per day: 0.2; Cigarettes Per Day: 4 CIGS PER DAY X SEVERAL YEARS; Second Hand Exposure: Yes; Do You Dip or Chew Tobacco: No; Tobacco Cessation Education Requested by Patient: No Hx Alcohol Use: No Hx Substance Use: No Preferred Language: Kosovan Communication Ability: Effective Visual Impairment: No Limitations Sales Program Manager Required: No Beliefs That Will Affect Care: None marital status: Current Living Situation: Spouse current occupational status: employed 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 How many Children do You have: 1 Other Information That Helps Us Care for You: No Feels Safe at Home: Yes Safety Concerns: Feels Safe At This Time Childhood Exposure to Second-Hand Smoke: Yes Diet: regular caffeine: Yes (coffee) Dental Care, Regularly: Yes Physical Activity Frequency: 1-2 Times per Week Seatbelt Use: always Sunscreen Use: Yes Assistive Devices: None Review of Systems Constitutional: no fever Eyes: no problem reported Ear, Nose, Mouth, Throat: no problem reported Respiratory: no cough and no dyspnea Cardiovascular: no chest pain Gastrointestinal: no abdominal pain, no nausea, no vomiting and no diarrhea/loose stools Physical Exam Constitutional: not in distress Eyes: PERRL, conjunctivae normal, anicteric sclerae ENMT: external ear and nose normal, oropharynx normal Neck: trachea midline, no thyromegaly Respiratory: normal respiratory effort, lungs clear to auscultation Cardiovascular: RRR, no murmur, no edema Gastrointestinal (Abdomen): normal bowel sounds, soft, nontender, no hepatosplenomegaly Musculoskeletal: Extremities: no cyanosis and no clubbing Skin: no rashes, warm and dry Neurologic: awake; not confused Results & Data Vital Signs (Past 12 Hours) Vital Signs Temp Pulse Resp BP Pulse Ox O2 Del Method O2 Flow Rate 10/02/22 11:01 125/52 L 10/02/22 11:01 55 L 22 92 10/02/22 11:00 54 L 20 90 10/02/22 10:31 56 L 19 97 10/02/22 10:31 137/58 L 10/02/22 10:30 59 L 21 96 10/02/22 10:01 58 L 20 96 10/02/22 10:01 125/66 10/02/22 10:00 57 L 22 97 10/02/22 09:31 130/68 10/02/22 09:31 59 L 22 97 10/02/22 09:30 55 L 20 100 10/02/22 09:01 61 19 99 10/02/22 09:01 144/58 H 10/02/22 09:00 62 27 H 99 10/02/22 10:00 Room Air 10/02/22 09:32 36.9 C 10/02/22 07:00 53 L 10/02/22 08:39 144/51 H 10/02/22 08:39 66 23 99 10/02/22 08:30 98 10/02/22 08:02 61 21 99 10/02/22 08:02 136/47 L 10/02/22 08:00 60 23 99 10/02/22 07:31 144/59 H 10/02/22 07:31 63 21 99 10/02/22 07:30 62 19 99 10/02/22 07:01 56 L 16 98 10/02/22 07:01 137/65 10/02/22 07:00 55 L 16 98 10/02/22 07:38 Nasal Cannula 2 10/02/22 06:30 57 L 18 99 10/02/22 06:15 57 L 21 98 10/02/22 06:02 66 20 94 10/02/22 06:02 104/61 10/02/22 06:00 56 L 14 98 10/02/22 05:45 58 L 18 97 10/02/22 05:31 58 L 21 97 10/02/22 05:31 129/55 L 10/02/22 05:30 58 L 19 98 10/02/22 05:15 55 L 16 97 10/02/22 05:01 61 21 98 10/02/22 05:01 150/63 H 10/02/22 05:00 62 19 99 10/02/22 04:45 62 20 95 10/02/22 04:30 57 L 18 100 10/02/22 04:30 128/74 10/02/22 04:22 151/62 H 10/02/22 04:22 59 L 16 100 10/02/22 04:15 60 19 98 10/02/22 04:00 69 12 97 10/02/22 03:45 59 L 22 98 10/02/22 03:31 55 L 22 96 10/02/22 03:31 124/72 10/02/22 03:30 56 L 17 98 10/02/22 03:15 51 L 18 99 10/02/22 03:01 133/60 10/02/22 03:01 57 L 24 97 10/02/22 03:00 56 L 18 98 10/02/22 02:45 54 L 18 99 10/02/22 03:43 55 L 21 98 2 10/02/22 02:31 129/60 10/02/22 02:31 55 L 18 96 10/02/22 02:30 55 L 22 99 10/02/22 02:15 60 13 99 10/02/22 02:01 115/45 L 10/02/22 02:01 42 L 12 92 10/02/22 02:00 53 L 23 96 10/02/22 01:45 60 23 98 10/02/22 04:21 37.5 C 10/02/22 01:31 149/59 H 10/02/22 01:31 58 L 25 H 94 10/02/22 01:30 58 L 19 97 10/02/22 01:15 64 23 97 10/02/22 01:01 61 19 96 10/02/22 01:01 123/55 L 10/02/22 01:00 64 20 99 10/02/22 00:45 62 20 99 10/02/22 00:31 62 21 98 10/02/22 00:31 148/69 H 10/02/22 00:30 64 18 99 10/02/22 00:18 66 16 97 10/02/22 00:18 135/69 10/02/22 00:15 66 24 97 10/02/22 00:00 63 23 99 10/01/22 23:45 64 20 99 10/01/22 23:41 67 28 H 99 10/01/22 23:41 160/73 H 10/02/22 00:30 63 21 99 10/01/22 23:46 64 10/02/22 00:00 Nasal Cannula 2 FiO2 10/02/22 11:01 10/02/22 11:01 10/02/22 11:00 10/02/22 10:31 10/02/22 10:31 10/02/22 10:30 10/02/22 10:01 10/02/22 10:01 10/02/22 10:00 10/02/22 09:31 10/02/22 09:31 10/02/22 09:30 10/02/22 09:01 10/02/22 09:01 10/02/22 09:00 10/02/22 10:00 10/02/22 09:32 10/02/22 07:00 10/02/22 08:39 10/02/22 08:39 10/02/22 08:30 10/02/22 08:02 10/02/22 08:02 10/02/22 08:00 10/02/22 07:31 10/02/22 07:31 10/02/22 07:30 10/02/22 07:01 10/02/22 07:01 10/02/22 07:00 10/02/22 07:38 10/02/22 06:30 10/02/22 06:15 10/02/22 06:02 10/02/22 06:02 10/02/22 06:00 10/02/22 05:45 10/02/22 05:31 10/02/22 05:31 10/02/22 05:30 10/02/22 05:15 10/02/22 05:01 10/02/22 05:01 10/02/22 05:00 10/02/22 04:45 10/02/22 04:30 10/02/22 04:30 10/02/22 04:22 10/02/22 04:22 10/02/22 04:15 10/02/22 04:00 10/02/22 03:45 10/02/22 03:31 10/02/22 03:31 10/02/22 03:30 10/02/22 03:15 10/02/22 03:01 10/02/22 03:01 10/02/22 03:00 10/02/22 02:45 10/02/22 03:43 10/02/22 02:31 10/02/22 02:31 10/02/22 02:30 10/02/22 02:15 10/02/22 02:01 10/02/22 02:01 10/02/22 02:00 10/02/22 01:45 10/02/22 04:21 10/02/22 01:31 10/02/22 01:31 10/02/22 01:30 10/02/22 01:15 10/02/22 01:01 10/02/22 01:01 10/02/22 01:00 10/02/22 00:45 10/02/22 00:31 10/02/22 00:31 10/02/22 00:30 10/02/22 00:18 10/02/22 00:18 10/02/22 00:15 10/02/22 00:00 10/01/22 23:45 10/01/22 23:41 10/01/22 23:41 10/02/22 00:30 30 10/01/22 23:46 10/02/22 00:00 Laboratory Results Laboratory Tests 10/01/22 10/01/22 10/01/22 17:31 17:31 18:35 WBC Hgb Hct Plt Count Sodium 110 L* Potassium Chloride Carbon Dioxide BUN Creatinine Glucose AST 116 H ALT 34 Alkaline Phosphatase 86 Albumin 4.3 TSH 0.884 Urine Color Yellow Urine Appearance Clear Urine pH 6.5 Ur Specific [place] 1.017 Urine Protein 1+ H Urine Glucose (UA) Negative Urine Ketones 2+ H Urine Blood Trace H Urine Nitrite Negative Urine RBC (Auto) 0-4 Urine Osmolality Protein/Creatinin Ratio 10/01/22 10/01/22 10/02/22 18:35 18:35 03:56 WBC Hgb Hct Plt Count Sodium 114 L* Potassium Chloride Carbon Dioxide BUN Creatinine Glucose AST ALT Alkaline Phosphatase Albumin TSH Urine Color Urine Appearance Urine pH Ur Specific [place] Urine Protein Urine Glucose (UA) Urine Ketones Urine Blood Urine Nitrite Urine RBC (Auto) Urine Osmolality 548 Protein/Creatinin Ratio 0.5 H 10/02/22 10/02/22 03:56 08:54 WBC 11.35 H Hgb 11.7 L Hct 32.3 L Plt Count 247 Sodium 116 L* Potassium 4.1 Chloride 86 L Carbon Dioxide 23 BUN 16 Creatinine 1.07 Glucose 92 AST ALT Alkaline Phosphatase Albumin TSH Urine Color Urine Appearance Urine pH Ur Specific [place] Urine Protein Urine Glucose (UA) Urine Ketones Urine Blood Urine Nitrite Urine RBC (Auto) Urine Osmolality Protein/Creatinin Ratio Diagnostic Findings 07/[address]: 1. Stable scattered pulmonary micronodules. 2. No change from the prior exam 10/01/[address]: No acute intracranial hemorrhage, no evidence of acute territorial infarction or other acute intracranial disease process. 10/01/[address]: 1. LEFT nephrectomy. 2. Decompressed urinary bladder, which contains a Sanchez catheter. 3. Diverticulosis, without acute diverticulitis. No small bowel obstruction. No free intraperitoneal air. PG Care Time/CCT Total # of Minutes Spent Total Time Spent with Patient: Total time spent is greater than 50% in coordination of care (as documented) at patient's floor/unit and/or counseling patient: Coding Level of Care Code 43264 IN/OBS CONSULT LVL 5,80M Diagnoses Hyponatremia E87.1 Chronic kidney disease, stage III (moderate) N18.30 Hypertension I10 BPH (benign prostatic hyperplasia) N40.0
[2022-10-02 14:14] LABS: BUN Creatinine Ratio 14.8 (10-20); Calcium 8.4 mg/dl (8.6-10.3); Creatinine Clr Calc Pharmacy 90.9 ml/min; Est GFR (African American) 83.6 ml/min; Est GFR (Non-African American) 72.2 ml/min
[2022-10-02] MEDS: DESMOPRESSIN ACETATE 2 MCG in SODIUM CHLORIDE 0.9% 50 ML IV SCH ×2 (15:09→22:07)
--- NOTE | 2022-10-02 15:18 | Hospitalist Progress Note ---
Date of Service October 02, 2022 Assessment & Plan (1) Hyponatremia: Plan: Admitted with acute hyponatremia with encephalopathy, serum sodium was 110 Encephalopathy is now resolved Etiology of hyponatremia could be multi factorial, with diuretics and excess solute free intake contributing Goal of correction is not more than 7mmol/day Continue hypertonicsaline, stop when serum sodium gets to 125 Appreciate Hearing Impaired Teacher and nephrology (2) Hypertension: Plan: BP is under fair control Discontinue HCTZ and triamterene (3) BPH (benign prostatic hyperplasia): Plan: Continue flomax and finasteride (4) Chronic kidney disease, stage 3a: (5) Severe sleep apnea: (6) Prediabetes: (7) Solitary right kidney: (8) Hyperlipidemia: (9) Depression with anxiety: Plan continue to monitor, hopefully d/c when serum sodium normalises Admission and Anticipated Discharge Date Admission Date: October 01, 2022 Subjective patient seen and examined, feels over all better Review of Systems Review of Systems: All systems reviewed are negative, apart from the ones contained in the history. Physical Exam Physical Exam: The patient is awake, alert and oriented 3, well developed and well nourished, normocephalic and atraumatic, lying in bed and in no acute distress. HEENT--PERRL, EOMI, mucous membranes and oropharynx mildly dry Neck--supple. No JVD. No bruits. Thyroid normal, trachea midline, no adenopathy. Heart--normal S1 and S2. No murmurs, rubs or gallops. Lungs--clear bilaterally, no respiratory distress, no accessory muscle use. Abdomen--normal bowel sounds and soft. Mild epigastric and left sided abdominal pain Extremities--no cyanosis or clubbing. No edema. Dermatologic--normal skin turgor, normal color, no abnormal lymph nodes, no rash. Neurologic--cranial nerves II through XII grossly intact. Rheumatologic--normal range of motion. Psychiatric--normal affect. Results & Data Results & Data Vital Signs (Past 12 Hours) Vital Signs Temp Pulse Resp BP Pulse Ox O2 Del Method O2 Flow Rate 10/02/22 14:00 56 L 20 96 10/02/22 14:00 132/58 L 10/02/22 13:30 56 L 17 92 10/02/22 13:30 135/62 10/02/22 13:00 56 L 22 94 10/02/22 13:00 134/54 L 10/02/22 12:30 61 17 94 10/02/22 12:30 121/56 L 10/02/22 12:00 56 L 23 96 10/02/22 11:30 59 L 17 96 10/02/22 11:30 121/65 10/02/22 11:01 125/52 L 10/02/22 11:01 55 L 22 92 10/02/22 11:00 54 L 20 90 10/02/22 10:31 56 L 19 97 10/02/22 10:31 137/58 L 10/02/22 10:30 59 L 21 96 10/02/22 10:01 58 L 20 96 10/02/22 10:01 125/66 10/02/22 10:00 57 L 22 97 10/02/22 09:31 130/68 10/02/22 09:31 59 L 22 97 10/02/22 09:30 55 L 20 100 10/02/22 09:01 61 19 99 10/02/22 09:01 144/58 H 10/02/22 09:00 62 27 H 99 10/02/22 10:00 Room Air 10/02/22 09:32 98.4 F 10/02/22 07:00 53 L 10/02/22 08:39 144/51 H 10/02/22 08:39 66 23 99 10/02/22 08:30 98 10/02/22 08:02 61 21 99 10/02/22 08:02 136/47 L 10/02/22 08:00 60 23 99 10/02/22 07:31 144/59 H 10/02/22 07:31 63 21 99 10/02/22 07:30 62 19 99 10/02/22 07:01 56 L 16 98 10/02/22 07:01 137/65 10/02/22 07:00 55 L 16 98 10/02/22 07:38 Nasal Cannula 2 10/02/22 06:30 57 L 18 99 10/02/22 06:15 57 L 21 98 10/02/22 06:02 66 20 94 10/02/22 06:02 104/61 10/02/22 06:00 56 L 14 98 10/02/22 05:45 58 L 18 97 10/02/22 05:31 58 L 21 97 10/02/22 05:31 129/55 L 10/02/22 05:30 58 L 19 98 10/02/22 05:15 55 L 16 97 10/02/22 05:01 61 21 98 10/02/22 05:01 150/63 H 10/02/22 05:00 62 19 99 10/02/22 04:45 62 20 95 10/02/22 04:30 57 L 18 100 10/02/22 04:30 128/74 10/02/22 04:22 151/62 H 10/02/22 04:22 59 L 16 100 10/02/22 04:15 60 19 98 10/02/22 04:00 69 12 97 10/02/22 03:45 59 L 22 98 10/02/22 03:31 55 L 22 96 10/02/22 03:31 124/72 10/02/22 03:30 56 L 17 98 10/02/22 03:15 51 L 18 99 10/02/22 03:43 55 L 21 98 2 10/02/22 04:21 99.5 F PG Care Time/CCT Total # of Minutes Spent Total Time Spent with Patient: Total time spent is greater than 50% in coordination of care (as documented) at patient's floor/unit and/or counseling patient: Coding Level of Care Code 34820 SUB INP/OBS CARE 2/35MIN Diagnoses Hyponatremia E87.1 Hypertension I10 BPH (benign prostatic hyperplasia) N40.0 Chronic kidney disease, stage 3a N18.31 Severe sleep apnea G47.30 Prediabetes R73.03 Solitary right kidney Q60.0 Hyperlipidemia E78.5 Depression with anxiety F41.8 Time Spent (min) 35
[2022-10-02 18:17] LABS: Calcium 8.6 mg/dl (8.6-10.3); Creatinine Clr Calc Pharmacy 86.9 ml/min; Est GFR (African American) 79.2 ml/min; Est GFR (Non-African American) 68.3 ml/min; Potassium 4.2 mmol/L (3.5-5.1)
[2022-10-03 01:21] LABS: BUN Creatinine Ratio 16.1 (10-20); Calcium 8.7 mg/dl (8.6-10.3); Creatinine Clr Calc Pharmacy 83.2 ml/min; Est GFR (African American) 75.1 ml/min; Est GFR (Non-African American) 64.8 ml/min
[2022-10-03] MEDS ORDERED: SODIUM CHLORIDE 3 % 100 ML IV ONE (01:25)
[2022-10-03] MEDS ORDERED: STAT IV STA (01:25)
[2022-10-03] MEDS ORDERED: SODIUM CHLORIDE 0.9% 1000ML 250 ML IV ONE (01:26)
[2022-10-03 05:21] LABS: Basophils # (auto) 0.03 K/uL (0-0.2); Basophils % (auto) 0.3 %; Eosinophils # (auto) 0.02 K/uL (0-0.50); Eosinophils % (auto) 0.2 %; Hematocrit (blood only) 33.7 % (42.0-52.0); Immature Granulocytes # (auto) 0.04 K/uL (0.01-0.20); Immature Granulocytes % (auto) 0.4 %; Lymphocytes # (auto) 0.72 K/uL (1.2-3.4); Lymphocytes % (auto) 7.8 %; Mean Corpuscular Hemoglobin 30.8 pg (25.0-34.0); Mean Corpuscular Hgb Conc 35.6 g/dL (32.0-36.0); Mean Corpuscular Volume 86.6 fL (80.0-100.0); Mean Platelet Volume 10.2 fL (9.4-12.4); Monocytes # (auto) 0.81 K/uL (0.11-0.59); Monocytes % (auto) 8.8 %; Neutrophils # (auto) 7.62 K/uL (1.40-6.50); Neutrophils % (auto) 82.5 %; Platelet Count 222 K/uL (130-400); RDW Coefficient of Variation 12.6 % (11.5-14.5); RDW Standard Deviation 39.7 fL (36.4-46.3); Red Blood Count 3.89 M/uL (4.70-6.10); White Blood Count 9.24 K/ul (4.8-10.8)
[2022-10-03 05:32] LABS: BUN Creatinine Ratio 17.1 (10-20); Calcium 8.7 mg/dl (8.6-10.3); Creatinine Clr Calc Pharmacy 83.9 ml/min; Est GFR (African American) 75.9 ml/min; Est GFR (Non-African American) 65.5 ml/min; Magnesium 2.1 mg/dl (1.7-2.4)
[2022-10-03] MEDS: HEPARIN SOD 5,000 UNIT/0.5 ML VIAL SQ SCH (06:20)
--- NOTE | 2022-10-03 07:57 | Nephrology Progress Note ---
Date of Service October 03, 2022 Assessment & Plan (1) Hyponatremia: Plan: * Presented w/ severe hyponatremia (Na < 120 accompanied by mental status changes) * Rate of correction remains appropriate (presenting serum sodium 110 mmol/L 10/01/22 at 1700 hrs) * ICU team has been managing hyponatremia appropriately w/ 3% NaCl. They have ordered serial PRP. Will defer correction of serum sodium to them * Once serum Na > 125 mmol/L consider transition from 3% NaCl to oral NaCl tablets * Agree w/ stopping Triamterene-HCTZ. I have listed thiazides as a "drug allergy" in the EMR due to hyponatremia (2) Chronic kidney disease, stage III (moderate): Plan: * CKD stage G3a/A3 (moderate impairment). Baseline Cr 1.3-1.4 w/EGFR 51 cc/min. UPCR 0.5. He is s/p L laparoscopic robotic assisted radical nephrou reterectomy 06/09. Histology was c/w transitional cell CA confined to the kidney * Kidney function is stable at this time. Volume status and electrolyte balance remain acceptable * Monitor PRP, UO * Will continue to follow peripherally (3) Hypertension: Plan: * BP has been elevated * Triamterene-HCTZ stopped due to hyponatremia * Will start Amlodipine 2.5 mg po daily * Continue Atenolol and Losartan (4) BPH (benign prostatic hyperplasia): Plan: * Patient likely has CHERY related to BPH * Continue Tamsulosin * Will need PVR checked after Sanchez catheter removed. If PVR > 100 cc, will need Urology evaluation Admission and Anticipated Discharge Date Admission Date: October 01, 2022 Subjective Mr. Peter was evaluated in the ICU this morning. He was A&Ox3. He denied [place], weakness or visual change. He reported that his diet has been advanced Review of Systems Constitutional: no fever Eyes: no problem reported Ear, Nose, Mouth, Throat: no problem reported Respiratory: no cough and no dyspnea Cardiovascular: no chest pain Gastrointestinal: no abdominal pain, no nausea, no vomiting and no diarrhea/loose stools Physical Exam Constitutional: not in distress Eyes: PERRL, conjunctivae normal, anicteric sclerae ENMT: external ear and nose normal, oropharynx normal Neck: trachea midline, no thyromegaly Respiratory: normal respiratory effort, lungs clear to auscultation Cardiovascular: RRR, no murmur, no edema Gastrointestinal (Abdomen): normal bowel sounds, soft, nontender, no hepatosplenomegaly Musculoskeletal: Extremities: no cyanosis and no clubbing Skin: no rashes, warm and dry Neurologic: awake; not confused Results & Data Vital Signs (Past 12 Hours) Vital Signs Temp Pulse Resp BP Pulse Ox O2 Del Method 10/03/22 07:46 Room Air 10/03/22 06:00 56 L 18 170/71 H 95 CPAP 10/03/22 05:00 55 L 15 157/86 H 96 CPAP 10/03/22 04:00 36.6 C 59 L 16 155/70 H 95 CPAP 10/03/22 03:00 55 L 18 163/71 H 96 CPAP 10/03/22 02:29 56 L 16 97 10/03/22 02:00 57 L 14 136/78 95 CPAP 10/03/22 01:00 57 L 21 128/79 95 CPAP 10/03/22 00:00 37 C 54 L 16 149/64 H 95 CPAP 10/02/22 23:00 54 L 17 161/63 H 95 CPAP 10/02/22 23:51 64 13 97 10/02/22 22:00 55 L 16 138/72 93 CPAP 10/02/22 21:00 61 16 151/66 H 94 Room Air 10/02/22 20:00 37.2 C 59 L 21 132/50 L 97 Room Air Laboratory Results Laboratory Tests 10/03/22 10/03/22 04:44 04:44 WBC 9.24 Hgb 12.0 L Hct 33.7 L Plt Count 222 Sodium 122 L Potassium 4.0 Chloride 90 L Carbon Dioxide 23 BUN 20 Creatinine 1.17 Glucose 82 PG Care Time/CCT Total # of Minutes Spent Total Time Spent with Patient: Total time spent is greater than 50% in coordination of care (as documented) at patient's floor/unit and/or counseling patient: Coding Level of Care Code 67783 SUB INP/OBS CARE 3/50MIN Diagnoses Hyponatremia E87.1 Chronic kidney disease, stage III (moderate) N18.30 Hypertension I10 BPH (benign prostatic hyperplasia) N40.0
[2022-10-03] MEDS: ICU Protocol for HYPERglycemia SCH ×2 (08:16→11:46)
[2022-10-03] MEDS: SIMVASTATIN 20 MG TAB PO SCH (08:22)
[2022-10-03] MEDS: LOSARTAN POTASSIUM 50 MG TAB PO SCH (08:23)
[2022-10-03] MEDS: FINASTERIDE 5 MG TAB PO SCH (08:23)
[2022-10-03] MEDS: ATENOLOL 25 MG TABLET PO SCH (08:23)
[2022-10-03] MEDS: amLODIPine BESYLATE 5 MG TAB PO SCH (08:39)
[2022-10-03 09:08] LABS: BUN Creatinine Ratio 17.7 (10-20); Calcium 8.6 mg/dl (8.6-10.3); Creatinine Clr Calc Pharmacy 86.4 ml/min; Est GFR (African American) 79.2 ml/min; Est GFR (Non-African American) 68.3 ml/min
--- NOTE | 2022-10-03 09:41 | Critical Care Progress Note ---
Date of Service October 03, 2022 Assessment & Plan (1) Hyponatremia: (2) Chronic kidney disease, stage 3a: (3) Severe sleep apnea: (4) BPH (benign prostatic hyperplasia): (5) Prediabetes: (6) Solitary right kidney: (7) Hyperlipidemia: (8) Hypertension: (9) Depression with anxiety: Plan Reason Critically Ill: severe hyponatremia of 110. Neuro - Anxiety/Depression, Lethargy secondary to hyponatremia CAM ICU: Negative - Can continue Fluoxetine Cardiac - HTN, HLD - Stable no acute needs -On losartan and atenolol, added 2.5 mg amlodipine by nephrology Respiratory - Severe FERNANDA - Continue home CPAP at 16CM H20 GI - No acute needs RENAL/LYTES - Severe Hyponatremia acute on chronic, hypochlroemia, CKD III, solitary right kidney -Sodium currently 122 -Regular diet - BPH - Chronic -can discontinue Sanchez catheter ENDO - DMII - ICU hyperglycemic protocol HEME - No acute needs ID - No source of infection mild leukocytosis without fever- follow fever curve await CT abdomen/pelvis- UA without infection LINES/IV ACCESS - PIV/Sanchez Continue use of thes lines DVT PROPHYLAXIS - transition from heparin to Lovenox subcu DISPO: Stable for downgrade from the ICU. Admission and Anticipated Discharge Date Admission Date: October 01, 2022 Subjective Reports feeling fine and not as hungry as he would have anticipated himself to be. Physical Exam Physical Exam: General: Alert. nontoxic. Skin: Warm, dry, Head: Atraumatic Ears, nose, mouth and throat: airway patent Cardiovascular: Normal peripheral perfusion Respiratory: no respiratory distress Gastrointestinal: Non distended Musculoskeletal: No deformity Results & Data Results & Data Vital Signs (Past 12 Hours) Vital Signs Temp Pulse Resp BP Pulse Ox O2 Del Method 10/03/22 08:34 60 10/03/22 07:46 Room Air 10/03/22 06:00 56 L 18 170/71 H 95 CPAP 10/03/22 05:00 55 L 15 157/86 H 96 CPAP 10/03/22 04:00 36.6 C 59 L 16 155/70 H 95 CPAP 10/03/22 03:00 55 L 18 163/71 H 96 CPAP 10/03/22 02:29 56 L 16 97 10/03/22 02:00 57 L 14 136/78 95 CPAP 10/03/22 01:00 57 L 21 128/79 95 CPAP 10/03/22 00:00 37 C 54 L 16 149/64 H 95 CPAP 10/02/22 23:00 54 L 17 161/63 H 95 CPAP 10/02/22 23:51 64 13 97 10/02/22 22:00 55 L 16 138/72 93 CPAP Critical Care Results & Data Vital Signs (Past 12 Hours) Vital Signs Temp Pulse Resp BP Pulse Ox O2 Del Method 10/03/22 08:34 60 10/03/22 07:46 Room Air 10/03/22 06:00 56 L 18 170/71 H 95 CPAP 10/03/22 05:00 55 L 15 157/86 H 96 CPAP 10/03/22 04:00 36.6 C 59 L 16 155/70 H 95 CPAP 10/03/22 03:00 55 L 18 163/71 H 96 CPAP 10/03/22 02:29 56 L 16 97 10/03/22 02:00 57 L 14 136/78 95 CPAP 10/03/22 01:00 57 L 21 128/79 95 CPAP 10/03/22 00:00 37 C 54 L 16 149/64 H 95 CPAP 10/02/22 23:00 54 L 17 161/63 H 95 CPAP 10/02/22 23:51 64 13 97 10/02/22 22:00 55 L 16 138/72 93 CPAP Lab & Micro Results (Past 24 Hours) RBC 3.89 M/uL (4.70-6.10) L 10/03/22 WBC 9.24 K/ul (4.8-10.8) 10/03/22 Hgb 12.0 g/dl (14.0-18.0) L 10/03/22 Hct 33.7 % (42.0-52.0) L 10/03/22 MCV 86.6 fL (80.0-100.0) 10/03/22 MCH 30.8 pg (25.0-34.0) 10/03/22 MCHC 35.6 g/dL (32.0-36.0) 10/03/22 RDW Standard Deviation 39.7 fL (36.4-46.3) 10/03/22 RDW Coefficient of Variation 12.6 % (11.5-14.5) 10/03/22 Plt Count 222 K/uL (130-400) 10/03/22 MPV 10.2 fL (9.4-12.4) 10/03/22 Neutrophils (%) (Auto) 82.5 % 10/03/22 Lymphocytes (%) (Auto) 7.8 % 10/03/22 Monocytes # (Auto) 0.81 K/uL (0.11-0.59) H 10/03/22 Eosinophils # (Auto) 0.02 K/uL (0-0.50) 10/03/22 Immature Granulocyte % (Auto) 0.4 % 10/03/22 Neutrophils # (Auto) 7.62 K/uL (1.40-6.50) H 10/03/22 Lymphocytes # (Auto) 0.72 K/uL (1.2-3.4) L 10/03/22 Monocytes # (Auto) 0.81 K/uL (0.11-0.59) H 10/03/22 Eosinophils # (Auto) 0.02 K/uL (0-0.50) 10/03/22 Basophils # (Auto) 0.03 K/uL (0-0.2) 10/03/22 Immature Granulocyte # (Auto) 0.04 K/uL (0.01-0.20) 3 Na 122 mmol/L (136-145) L 10/03/22 K 4.0 mmol/L (3.5-5.1) 10/03/22 Cl 90 mmol/L (98-107) L 10/03/22 CO2 23 mmol/L (21-32) 10/03/22 Anion Gap 9 (3-11) 10/03/22 BUN 20 mg/dl (6-23) 10/03/22 Creatinine 1.13 mg/dl (0.6-1.4) 10/03/22 Estimated GFR ( Amer) 79.2 ml/min 10/03/22 Estimated GFR (Non-Af Amer) 68.3 ml/min 10/03/22 BUN/Creatinine Ratio 17.7 (10-20) 10/03/22 Glu 84 mg/dl (70-99(Fasting)) 10/03/22 Ca 8.6 mg/dl (8.6-10.3) 10/03/22 Mg 2.1 mg/dl (1.7-2.4) 10/03/22 04:44 Calcium Level 8.6 mg/dl (8.6-10.3) 10/03/22 08:31 I & O Totals 24 Hours 10/02/22 10/03/22 10/04/22 06:59 06:59 06:59 Intake Total 750 / 750 1173.666 / 1173.666 300 / 300 Output Total 1410 / 1410 2009 Balance -660 / -660 -836.334 / -836.334 300 / 300 Cumulative 10/01/22 16:39 thru 10/03/22 09:13 Intake Total 2223.666 Output Total 3420 Balance -1196.334 RT Ventilator Mngmt (Last Documented) Ventilator Ordered Settings Respiratory Rate 18 10/03/22 06:00 Fraction of Inspired Oxygen 30 10/02/22 00:30 Ventilator - PT Measurements Respiratory Rate 18 Coding Level of Care Code 11069 SUB INP/OBS CARE 3/50MIN Diagnoses Hyponatremia E87.1 Chronic kidney disease, stage 3a N18.31 Severe sleep apnea G47.30 BPH (benign prostatic hyperplasia) N40.0 Prediabetes R73.03 Solitary right kidney Q60.0 Hyperlipidemia E78.5 Hypertension I10 Depression with anxiety F41.8
[2022-10-03] MEDS: SODIUM CHLORIDE 0.9% 1000ML 1,000 ML IV SCH (09:52)
[2022-10-03] MEDS: ENOXAPARIN INJ 40 MG/0.4 ML SYR SQ SCH ×2 (11:31→21:02)
[2022-10-03 13:18] LABS: BUN Creatinine Ratio 16.9 (10-20); Calcium 8.7 mg/dl (8.6-10.3); Creatinine Clr Calc Pharmacy 75.1 ml/min; Est GFR (African American) 66.8 ml/min; Est GFR (Non-African American) 57.7 ml/min; Potassium 3.9 mmol/L (3.5-5.1)
--- NOTE | 2022-10-03 14:20 | Hospitalist Progress Note ---
Date of Service October 03, 2022 Assessment & Plan (1) Hyponatremia: Plan: Admitted with acute hyponatremia with encephalopathy, serum sodium was 110 Encephalopathy is now resolved Etiology of hyponatremia could be multi factorial, with diuretics and excess solute free intake contributing Goal of correction is not more than 7mmol/day Serum Na 122 today Continue hypertonic saline, when serum sodium gets to 125, change to salt tablets Appreciate Printing Machine Operator and nephrology (2) Hypertension: Plan: BP is under fair control Discontinue HCTZ and triamterene (3) BPH (benign prostatic hyperplasia): Plan: Continue flomax and finasteride (4) Chronic kidney disease, stage 3a: Plan: solitary kidney s/p nephrectomy for transitional cell ca (5) Severe sleep apnea: (6) Prediabetes: (7) Solitary right kidney: (8) Hyperlipidemia: (9) Depression with anxiety: Plan continue to monitor, hopefully d/c when serum sodium normalises Admission and Anticipated Discharge Date Admission Date: October 01, 2022 Subjective patient seen and examined, doing well, tolerating diet Review of Systems Review of Systems: All systems reviewed are negative, apart from the ones contained in the history. Physical Exam Physical Exam: The patient is awake, alert and oriented 3, well developed and well nourished, normocephalic and atraumatic, lying in bed and in no acute distress. HEENT--PERRL, EOMI, mucous membranes and oropharynx mildly dry Neck--supple. No JVD. No bruits. Thyroid normal, trachea midline, no adenopath y. Heart--normal S1 and S2. No murmurs, rubs or gallops. Lungs--clear bilaterally, no respiratory distress, no accessory muscle use. Abdomen--normal bowel sounds and soft. Mild epigastric and left sided abdominal pain Extremities--no cyanosis or clubbing. No edema. Dermatologic--normal skin turgor, normal color, no abnormal lymph nodes, no rash. Neurologic--cranial nerves II through XII grossly intact. Rheumatologic--normal range of motion. Psychiatric--normal affect. Results & Data Results & Data Vital Signs (Past 12 Hours) Vital Signs Temp Pulse Resp BP Pulse Ox O2 Del Method 10/03/22 10:19 62 21 96 10/03/22 10:19 138/67 10/03/22 10:00 62 22 10/03/22 10:00 126/67 10/03/22 09:01 131/60 10/03/22 09:01 63 19 97 10/03/22 09:00 65 18 10/03/22 08:01 169/58 H 10/03/22 08:01 63 22 95 10/03/22 08:00 61 24 95 10/03/22 07:01 160/68 H 10/03/22 07:01 60 20 94 10/03/22 07:00 60 20 94 10/03/22 06:07 55 L 15 96 10/03/22 06:07 170/71 H 10/03/22 09:00 97.9 F 10/03/22 08:34 60 10/03/22 07:46 Room Air 10/03/22 06:00 56 L 18 170/71 H 95 CPAP 10/03/22 05:00 55 L 15 157/86 H 96 CPAP 10/03/22 04:00 97.9 F 59 L 16 155/70 H 95 CPAP 10/03/22 03:00 55 L 18 163/71 H 96 CPAP 10/03/22 02:29 56 L 16 97 PG Care Time/CCT Total # of Minutes Spent Total Time Spent with Patient: Total time spent is greater than 50% in coordination of care (as documented) at patient's floor/unit and/or counseling patient: Coding Level of Care Code 68901 SUB INP/OBS CARE 2/35MIN Diagnoses Hyponatremia E87.1 Hypertension I10 BPH (benign prostatic hyperplasia) N40.0 Chronic kidney disease, stage 3a N18.31 Severe sleep apnea G47.30 Prediabetes R73.03 Solitary right kidney Q60.0 Hyperlipidemia E78.5 Depression with anxiety F41.8 Time Spent (min) 35
[2022-10-03 17:25] LABS: BUN Creatinine Ratio 17.8 (10-20); Calcium 8.6 mg/dl (8.6-10.3); Creatinine Clr Calc Pharmacy 72.3 ml/min; Est GFR (African American) 63.9 ml/min; Est GFR (Non-African American) 55.1 ml/min; Potassium 3.8 mmol/L (3.5-5.1)
[2022-10-03 21:00] LABS: BUN Creatinine Ratio 20.7 (10-20); Calcium 8.5 mg/dl (8.6-10.3); Creatinine Clr Calc Pharmacy 80.6 ml/min; Est GFR (African American) 72.9 ml/min; Est GFR (Non-African American) 62.9 ml/min; Potassium 3.9 mmol/L (3.5-5.1)
[2022-10-03] MEDS: TAMSULOSIN HCL 0.4 MG CAP PO SCH (21:02)
[2022-10-04 05:06] LABS: Basophils # (auto) 0.04 K/uL (0-0.2); Basophils % (auto) 0.5 %; Eosinophils % (auto) 1.3 %; Hematocrit (blood only) 32.3 % (42.0-52.0); Hemoglobin 11.4 g/dl (14.0-18.0); Immature Granulocytes # (auto) 0.05 K/uL (0.01-0.20); Immature Granulocytes % (auto) 0.7 %; Lymphocytes # (auto) 0.88 K/uL (1.2-3.4); Lymphocytes % (auto) 11.8 %; Mean Corpuscular Hemoglobin 30.4 pg (25.0-34.0); Mean Corpuscular Hgb Conc 35.3 g/dL (32.0-36.0); Mean Corpuscular Volume 86.1 fL (80.0-100.0); Mean Platelet Volume 9.8 fL (9.4-12.4); Monocytes # (auto) 0.71 K/uL (0.11-0.59); Monocytes % (auto) 9.5 %; Neutrophils # (auto) 5.66 K/uL (1.40-6.50); Neutrophils % (auto) 76.2 %; Platelet Count 219 K/uL (130-400); RDW Coefficient of Variation 12.8 % (11.5-14.5); Red Blood Count 3.75 M/uL (4.70-6.10); White Blood Count 7.44 K/ul (4.8-10.8)
[2022-10-04 05:24] LABS: BUN Creatinine Ratio 18.1 (10-20); Calcium 8.7 mg/dl (8.6-10.3); Creatinine Clr Calc Pharmacy 76.8 ml/min; Est GFR (African American) 68.7 ml/min; Est GFR (Non-African American) 59.3 ml/min; Potassium 4.1 mmol/L (3.5-5.1)
--- NOTE | 2022-10-04 08:18 | Nephrology Progress Note ---
Date of Service October 04, 2022 Assessment & Plan (1) Hyponatremia: Plan: * Presented w/ severe hyponatremia (Na < 120 accompanied by mental status changes) * Rate of correction remains appropriate (presenting serum sodium 110 mmol/L 10/01/22 at 1700 hrs) * Serum Na 124 mmol/L this am. Will transition to NaCl tablets 2g po TID * Monitor PRP * Triamterene-HCTZ has been stopped and listed as a "drug allergy" in the EMR due to hyponatremia (2) Chronic kidney disease, stage III (moderate): Plan: * CKD stage G3a/A3 (moderate impairment). Baseline Cr 1.3-1.4 w/EGFR 51 cc/min. UPCR 0.5. He is s/p L laparoscopic robotic assisted radical nephroureterectomy 06/09. Histology was c/w transitional cell CA confined to the kidney * Kidney function is stable at this time. Volume status and electrolyte balance remain acceptable (3) Hypertension: Plan: * BP improved. Continue Atenolol, Losartan * Amlodipine 2.5 mg po daily added yesterday * Triamterene-HCTZ stopped due to hyponatremia (4) BPH (benign prostatic hyperplasia): Plan: * Patient likely has CHERY related to BPH * He was unable to void yesterday following removal of Sanchez catheter (see nursing notes 10/03/22 @ 18:57 hrs) * Keep Sanchez catheter in place. Continue Tamsulosin * Will request consultation w/ Urology Admission and Anticipated Discharge Date Admission Date: October 01, 2022 Subjective Mr. Peter was evaluated in his hospital room this morning. He was A&Ox3 and following commands appropriately. He denied MURDOCK or focal weakness. Mr. Peter reports that his Sanchez catheter was removed yesterday and he was unable to void. Review of Systems Constitutional: no fever Eyes: no problem reported Ear, Nose, Mouth, Throat: no problem reported Respiratory: no cough and no dyspnea Cardiovascular: no chest pain Gastrointestinal: no abdominal pain, no nausea, no vomiting and no diarrhea/loose stools Physical Exam Constitutional: not in distress Eyes: PERRL, conjunctivae normal, anicteric sclerae ENMT: external ear and nose normal, oropharynx normal Neck: trachea midline, no thyromegaly Respiratory: normal respiratory effort, lungs clear to auscultation Cardiovascular: RRR, no murmur, no edema Gastrointestinal (Abdomen): normal bowel sounds, soft, nontender, no hepatosplenomegaly Musculoskeletal: Extremities: no cyanosis and no clubbing Skin: no rashes, warm and dry Neurologic: awake; not confused Results & Data Vital Signs (Past 12 Hours) Vital Signs Temp Pulse Pulse Resp BP Pulse Ox O2 Del Method 10/04/22 07:34 36.4 C L 51 L 18 148/79 H 97 Room Air 10/04/22 04:00 36.6 C 58 L 18 144/55 H 97 CPAP 10/04/22 04:17 63 20 96 10/04/22 00:00 36.8 C 55 L 20 153/57 H 98 CPAP 10/03/22 23:13 60 26 H 98 Laboratory Results Laboratory Tests 10/04/22 10/04/22 04:52 04:52 WBC 7.44 Hgb 11.4 L Hct 32.3 L Plt Count 219 Sodium 124 L Potassium 4.1 Chloride 93 L Carbon Dioxide 25 BUN 23 Creatinine 1.27 Glucose 125 H PG Care Time/CCT Total # of Minutes Spent Total Time Spent with Patient: Total time spent is greater than 50% in coordination of care (as documented) at patient's floor/unit and/or counseling patient: Coding Level of Care Code 26152 SUB INP/OBS CARE 3/50MIN Diagnoses Hyponatremia E87.1 Chronic kidney disease, stage III (moderate) N18.30 Hypertension I10 BPH (benign prostatic hyperplasia) N40.0
[2022-10-04] MEDS: SODIUM CHLORIDE 1 GM TABLET PO SCH ×3 (09:16→20:36)
[2022-10-04] MEDS: ENOXAPARIN INJ 40 MG/0.4 ML SYR SQ SCH ×2 (09:16→20:36)
[2022-10-04] MEDS: FINASTERIDE 5 MG TAB PO SCH (09:17)
[2022-10-04] MEDS: amLODIPine BESYLATE 5 MG TAB PO SCH (09:17)
[2022-10-04] MEDS: SIMVASTATIN 20 MG TAB PO SCH (09:17)
[2022-10-04] MEDS: LOSARTAN POTASSIUM 50 MG TAB PO SCH (09:17)
--- NOTE | 2022-10-04 09:28 | Urology Consultation ---
Date of Consultation October 04, 2022 Assessment & Plan (1) Urinary retention: Plan 66yo/M with a hx of left nephroureterectomy for upper tract TCC in 2019 admitted with severe hyponatremia and mental status changes. Urology consulted for bladder outlet obstruction, urinary retention. He is afebrile and hemodynamically stable. Labs show no leukocytosis and a stable renal function. Urinalysis on admission not suggestive of infection. Urine culture from 09/[address] abd pelvis 10/01 reviewed - No hydronephrosis, decompressed bladder with hsieh, prior left nephrectomy Hsieh catheter placed on admission 10/01 and removed yesterday. Patient reported difficulty urinating following removal and was bladder scanned for volumes ranging 200-300ml. The catheter was replaced by nursing on 10/03. We discussed potential causes of difficulty with urination/retention including increased outlet resistance related to prostatic enlargement. He is on dual therapy with flomax and finasteride, recommend continuing. We discussed outpatient cystoscopy for further evaluation - he is agreeable. Will arrange outpatient follow-up with our service. Would recommend maintaining Hsieh catheter until outpatient follow-up with urology. Urology will sign off. Please contact us with any further questions, concerns, or changes in patient status. History of Present Illness Attending Physician: Trey Tucker MD History of Present Illness 66 year old male with a PMHx including left nephroureterectomy for upper tract TCC in 2019, FERNANDA, HTN, anxiety, BPH, and hyperlipidemia who presented to the [facility] ED on 10/01/22 with complaints of generalized weakness, intermittent confusion, and poor urine output over the past 72 hours admitted to ICU for leesa re hyponatremia of 110 with mental status changes. Encephalopathy has resolved and now downgraded to PCU. Urology consulted for bladder outlet obstruction, urinary retention. He is afebrile and hemodynamically stable. Labs show no leukocytosis and normal renal function. Urinalysis on admission with trace blood, otherwise no signs of infection. Urine culture 09/[address] abdomen pelvis 10/01/2022 showed a decompressed bladder with hsieh, prior left nephrectomy, no hydronephrosis. On arrival, pt was unable to provide a urine sample so a Hsieh catheter was placed with approximately 300 mL of urine output. The Hsieh catheter was removed on 6/15 but reinserted later that day as patient was unable to void. Patient reports prior to his hospital arrival, he was having difficulty ur inating for approximately 2 weeks. He noted reduced urinary output with increased urgency and frequency. He is on Flomax and finasteride. Allergies Allergy/AdvReac Type Severity Reaction Status Date / Time Thiazides AdvReac Severe hyponatremi Verified 10/02/22 13:32 a Home Medications Medication Instructions Recorded Confirmed Type cholecalciferol (vitamin D3) 125 125 mcg PO DAILY #30 caps 03/13/20 10/01/22 Rx mcg (5,000 unit) capsule triamterene 37.5 0.5 tab PO DAILY #30 tabs 10/02/21 10/01/22 Rx mg-hydrochlorothiazide 25 mg tablet finasteride 5 mg tablet 5 mg PO DAILY #30 tabs 11/05/21 10/01/22 Rx atenolol 25 mg tablet 25 mg PO DAILY #90 tabs 12/06/21 10/01/22 Rx fluoxetine 20 mg capsule 20 mg PO DAILY #90 caps 12/06/21 10/01/22 Rx simvastatin 20 mg tablet 20 mg PO DAILY #90 tabs 12/06/21 10/01/22 Rx buspirone 10 mg tablet 10 mg PO TID PRN anxiety #270 tabs 01/22/22 10/01/22 Rx losartan 100 mg tablet 100 mg PO DAILY #90 tabs 04/03/22 10/01/22 Rx tamsulosin 0.4 mg capsule 0.4 mg PO HS #90 caps 04/17/22 10/01/22 Rx Patient History Medical History Chronic kidney disease, stage 3a Cigar smoker Quit in 2018 Hyponatremia Dating back to at least October 2017. Na mid to low 130's. 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 Surgical History History of colonoscopy 2016 History of cystoscopy RECENT 04/06/18. MAC with propofol. No issues. History of herniorrhaphy CHILD History of nephrectomy 06/09/2018. GETA. MAC 4, grade 2 view. 8.0 ETT. No issues. Family History Aunt Family history of diabetes mellitus Mother Malignant melanoma Other Diabetes Denies family history of Ovarian cancer Prostate cancer Myocardial infarction Breast cancer Colorectal cancer Social History Smoking Status: Former smoker Tobacco Type: Cigarettes Age Started Using Tobacco: 20; Age Quit Using Tobacco: 63; packs per day: 0.2; Cigarettes Per Day: 4 CIGS PER DAY X SEVERAL YEARS; Second Hand Exposure: Yes; Do You Dip or Chew Tobacco: No; Tobacco Cessation Education Requested by Patient: No Hx Alcohol Use: No Hx Substance Use: No Preferred Language: Portuguese Communication Ability: Effective Visual Impairment: No Limitations Child Development Teacher Required: No Beliefs That Will Affect Care: None marital status: Current Living Situation: Spouse current occupational status: employed 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 How many Children do You have: 1 Other Information That Helps Us Care for You: No Feels Safe at Home: Yes Safety Concerns: Feels Safe At This Time Childhood Exposure to Second-Hand Smoke: Yes Diet: regular caffeine: Yes (coffee) Dental Care, Regularly: Yes Physical Activity Frequency: 1-2 Times per Week Seatbelt Use: always Sunscreen Use: Yes Assistive Devices: None Review of Systems Review of Systems: All systems reviewed & are unremarkable except as noted in HPI & below Physical Exam Constitutional: well developed and well nourished; no acute distress Eyes: PERRL, conjunctivae normal, anicteric sclerae ENMT: external ear and nose normal, oropharynx normal Neck: normal visual inspection Respiratory: normal respiratory effort; no respiratory distress and no labored breathing Musculoskeletal: Head/Neck/Chest: normocephalic Skin: No visible rashes or lesions to exposed skin areas Neurologic: moves all extremities and awake Psychiatric: A+Ox3, euthymic affect Genitourinary: Hsieh intact Results & Data Vital Signs (Past 12 Hours) Vital Signs Temp Pulse Pulse Resp BP Pulse Ox O2 Del Method 10/04/22 07:34 36.4 C L 51 L 18 148/79 H 97 Room Air 10/04/22 04:00 36.6 C 58 L 18 144/55 H 97 CPAP 10/04/22 04:17 63 20 96 10/04/22 00:00 36.8 C 55 L 20 153/57 H 98 CPAP 10/03/22 23:13 60 26 H 98 PG Care Time/CCT Total # of Minutes Spent Total Time Spent with Patient: Total time spent is greater than 50% in coordination of care (as documented) at patient's floor/unit and/or counseling patient: Coding Level of Care Code 64458 IN/OBS CONSULT LVL 3,45M Diagnoses Urinary retention R33.9
[2022-10-04] MEDS: ATENOLOL 25 MG TABLET PO SCH (09:52)
--- NOTE | 2022-10-04 13:30 | Hospitalist Progress Note ---
Date of Service October 04, 2022 Assessment & Plan (1) Hyponatremia: Plan: Admitted with acute hyponatremia with encephalopathy, serum sodium was 110 Encephalopathy is now resolved Etiology of hyponatremia could be multi factorial, with diuretics and excess solute free intake contributing Goal of correction is not more than 7mmol/day Serum Na 124 today Continue hypertonic saline, when serum sodium gets to 125, change to salt tablets Appreciate Snow Removing Supervisor and nephrology (2) Hypertension: Plan: BP is under fair control Discontinue HCTZ and triamterene (3) Urinary retention: Plan: secondary to BPH Failed voiding trial yesterday, hsieh was reinserted Urology on consult, for outpatient cystoscopy continue flomax and finasteride (4) BPH (benign prostatic hyperplasia): Plan: Continue flomax and finasteride (5) Chronic kidney disease, stage 3a: Plan: solitary kidney s/p nephrectomy for transitional cell ca (6) Severe sleep apnea: (7) Prediabetes: (8) Solitary right kidney: (9) Hyperlipidemia: (10) Depression with anxiety: Plan continue to monitor, hopefully d/c when serum sodium normalises Admission and Anticipated Discharge Date Admission Date: October 01, 2022 Subjective patient seen and examined, failed voiding trial yesterday, hsieh was re inserted Review of Systems Review of Systems: All systems reviewed are negative, apart from the ones contained in the history. Physical Exam Physical Exam: The patient is awake, alert and oriented 3, well developed and well nourished, normocephalic and atraumatic, lying in bed and in no acute distress. HEENT--PERRL, EOMI, mucous membranes and oropharynx mildly dry Neck--supple. No JVD. No bruits. Thyroid normal, trachea midline, no adenopathy. Heart--normal S1 and S2. No murmurs, rubs or gallops. Lungs--clear bilaterally, no respiratory distress, no accessory muscle use. Abdomen--normal bowel sounds and soft. Mild epigastric and left sided abdominal pain Extremities--no cyanosis or clubbing. No edema. Dermatologic--normal skin turgor, normal color, no abnormal lymph nodes, no rash. Neurologic--cranial nerves II through XII grossly intact. Rheumatologic--normal range of motion. Psychiatric--normal affect. Results & Data Results & Data Vital Signs (Past 12 Hours) Vital Signs Temp Pulse Pulse Resp BP Pulse Ox O2 Del Method 10/04/22 11:58 98.2 F 56 L 18 152/75 H 98 Room Air 10/04/22 09:52 60 10/04/22 07:34 97.5 F L 51 L 18 148/79 H 97 Room Air 10/04/22 04:00 97.9 F 58 L 18 144/55 H 97 CPAP 10/04/22 04:17 63 20 96 PG Care Time/CCT Total # of Minutes Spent Total Time Spent with Patient: Total time spent is greater than 50% in coordination of care (as documented) at patient's floor/unit and/or counseling patient: Coding Level of Care Code 20458 SUB INP/OBS CARE 2/35MIN Diagnoses Hyponatremia E87.1 Hypertension I10 Urinary retention R33.9 BPH (benign prostatic hyperplasia) N40.0 Chronic kidney disease, stage 3a N18.31 Severe sleep apnea G47.30 Prediabetes R73.03 Solitary right kidney Q60.0 Hyperlipidemia E78.5 Depression with anxiety F41.8 Time Spent (min) 35
[2022-10-04] MEDS ORDERED: HYDROCORTISONE 2.5% CR 30 GM TUBE EXT PRN (14:24)
[2022-10-04 14:50] LABS: BUN Creatinine Ratio 16.7 (10-20); Calcium 8.8 mg/dl (8.6-10.3); Creatinine Clr Calc Pharmacy 77.2 ml/min; Est GFR (African American) 69.4 ml/min; Est GFR (Non-African American) 59.9 ml/min; Potassium 4.4 mmol/L (3.5-5.1)
[2022-10-04] MEDS: TAMSULOSIN HCL 0.4 MG CAP PO SCH (20:36)
[2022-10-04] MEDS: ONDANSETRON INJ 2 MG/ML 2 ML VIAL IV PRN (21:01)
[2022-10-05 06:41] LABS: Basophils # (auto) 0.06 K/uL (0-0.2); Basophils % (auto) 0.8 %; Eosinophils % (auto) 2.6 %; Hematocrit (blood only) 33.9 % (42.0-52.0); Hemoglobin 11.4 g/dl (14.0-18.0); Immature Granulocytes # (auto) 0.03 K/uL (0.01-0.20); Immature Granulocytes % (auto) 0.4 %; Lymphocytes # (auto) 1.08 K/uL (1.2-3.4); Lymphocytes % (auto) 14.3 %; Mean Corpuscular Hemoglobin 29.9 pg (25.0-34.0); Mean Corpuscular Hgb Conc 33.6 g/dL (32.0-36.0); Mean Platelet Volume 9.8 fL (9.4-12.4); Monocytes # (auto) 0.75 K/uL (0.11-0.59); Monocytes % (auto) 9.9 %; Neutrophils # (auto) 5.44 K/uL (1.40-6.50); Platelet Count 235 K/uL (130-400); RDW Standard Deviation 42.5 fL (36.4-46.3); Red Blood Count 3.81 M/uL (4.70-6.10); White Blood Count 7.56 K/ul (4.8-10.8)
[2022-10-05 07:05] LABS: BUN Creatinine Ratio 16.1 (10-20); Calcium 8.9 mg/dl (8.6-10.3); Est GFR (African American) 75.1 ml/min; Est GFR (Non-African American) 64.8 ml/min; Potassium 4.7 mmol/L (3.5-5.1)
[2022-10-05] MEDS: ATENOLOL 25 MG TABLET PO SCH (08:51)
[2022-10-05] MEDS: SODIUM CHLORIDE 1 GM TABLET PO SCH (08:52)
[2022-10-05] MEDS: FINASTERIDE 5 MG TAB PO SCH (08:53)
[2022-10-05] MEDS: LOSARTAN POTASSIUM 50 MG TAB PO SCH (08:53)
[2022-10-05] MEDS: SIMVASTATIN 20 MG TAB PO SCH (08:54)
[2022-10-05] MEDS: amLODIPine BESYLATE 5 MG TAB PO SCH (08:54)
[2022-10-05] MEDS: ENOXAPARIN INJ 40 MG/0.4 ML SYR SQ SCH (08:55)
[2022-10-05] MEDS: ONDANSETRON INJ 2 MG/ML 2 ML VIAL IV PRN (08:57)
--- NOTE | 2022-10-05 11:59 | Nephrology Progress Note ---
Date of Service October 05, 2022 Assessment & Plan (1) Hyponatremia: (2) Chronic kidney disease, stage III (moderate): Plan 66 year old male with solitary right kidney status post left nephrectomy for renal cell carcinoma, baseline creatinine around 1.3-1.4, admitted with change in mental status and found to have acute hyponatremia, serum sodium was 110 and he received 3% saline on admission. He reports noticing decreased urine output at home and has been drinking lots of fluids. Triamterene hydrochlorothiazide was stopped. Workup was otherwise unremarkable. Sodium improved to 130 this morning, renal function stable. Overall otherwise doing well. Sanchez catheter was placed and plan to keep the Sanchez catheter in and follow with Urology as an outpatient while continuing on Flomax and finasteride for BPH. --ok to discharge with lab Friday, then in a week, continue fluid restriction, salt tab. advised to liberalize salt in diet. follow-up as outpatient as currently scheduled. Admission and Anticipated Discharge Date Admission Date: October 01, 2022 Rohini Wade is seen this morning with his at bedside. Overall he has been feeling well, no further episode of confusion. He feels at his baseline. Renal function stable, sodium improved to 130 this morning. Blood pressure acceptable. Has Sanchez catheter in place. Review of Systems Review of Systems: detailed review of system was otherwise unremarkable. Physical Exam Constitutional: WD/WN, vitals as above no acute distress Eyes: + anicteric sclerae Neck: normal visual inspection Respiratory: Auscultation: lungs clear to auscultation bilaterally Cardiovascular: Rate/Rhythm: regular rate and regular rhythm Heart Sounds: normal S1 and normal S2 Extremities: no edema Skin: normal turgor; no rashes Neurologic: no focal motor deficits and not confused Psychiatric: Orientation: alert and oriented x 3 Results & Data Vital Signs (Past 12 Hours) Vital Signs Temp Pulse Pulse Resp BP Pulse Ox O2 Del Method 10/05/22 11:20 37.0 C 52 L 18 141/65 H 97 Room Air 10/05/22 08:00 Room Air 10/05/22 07:01 37.0 C 56 L 18 151/75 H 97 Room Air 10/05/22 03:40 36.4 C L 55 L 18 151/82 H 97 Room Air PG Care Time/CCT Total # of Minutes Spent Total Time Spent with Patient: Total time spent is greater than 50% in coordination of care (as documented) at patient's floor/unit and/or counseling patient: Coding Level of Care Code 11156 SUB INP/OBS CARE MIN Diagnoses Hyponatremia E87.1 Chronic kidney disease, stage III (moderate) N18.30
--- NOTE | 2022-10-05 14:31 | Discharge Summary ---
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 ED on 10/01/22 with complaints of generalized weakness, intermittent confusion, and poor urine output over the past 72 hours. In the ED the patient was noted to be stable. Labs were significant for a leukocytosis of 13 with left shift of 11, sodium of 110, chloride of 77, glucose of 102, serum osmolality of 237, AST of 116, total bili of 1.2, covid 19 negative, and UA with 1+ protein, 2+ ketones, trace blood and no signs of infection. The patient became confused/disoriented while in the CT, CT of the head was negative for acute findings. The patient was unable to provide a urine sample so a hsieh cath was placed with approximately 300 cc of dark urine output. Prior to admission the patient was given 500 mL NSS and 100 mL of 3% hypertonic saline. At the time of the exam the patient was sitting in bed in no acute distress with his sitting bedside, history was obtained from both. The patient has a long history of difficulty urinating, he follows with Dr. Chou for his previous urologic malignancy and BPH. The patient started having increased urinary retention/difficultly urinating approximately 2 weeks ago despite being on finasteride and Flomax. A UA was obtained in the Urology clinic which was n egative for infection. Starting on 09/28 the patient developed significantly reduced urinary output with increased urinary urgency. Over this time the patient has had very poor oral intake but has been drinking "lots of water" to try and stay hydrated. He was still taking all medications as prescribed over this time. He denies recent fever, chills, headache, changes in vision, hearing taste, and smell, paraesthesias, chest pain, SOB, cough, abd pain, nausea, vomiting, diarrhea, hematuria, melena, bloody BM's, insect bites, rash, LE swelling and recent trauma. The patient and his confirm that his mental status is back to baseline at the time of the exam. He is a full code and his would make medical decisions for him if he could not make them himself. Principal Diagnosis acute hyponatremia Discharge Exam The patient is awake, alert and oriented 3, well developed and well nourished, normocephalic and atraumatic, lying in bed and in no acute distress. HEENT--PERRL, EOMI, mucous membranes and oropharynx mildly dry Neck--supple. No JVD. No bruits. Thyroid normal, trachea midline, no adenopathy. Heart--normal S1 and S2. No murmurs, rubs or gallops. Lungs--clear bilaterally, no respiratory distress, no accessory muscle use. Abdomen--normal bowel sounds and soft. Mild epigastric and left sided abdominal pain Extremities--no cyanosis or clubbing. No edema. Dermatologic--normal skin turgor, normal color, no abnormal lymph nodes, no rash. Neurologic--cranial nerves II through XII grossly intact. Rheumatologic--normal range of motion. Psychiatric--normal affect. Discharge Data Allergies Allergy/AdvReac Type Severity Reaction Status Date / Time Thiazides AdvReac Severe hyponatremi Verified 10/02/22 13:32 a Consultations 10/01/22 18:44 ED Decision to Admit Stat 10/01/22 22:14 Consult Advisor To Command In Combat Routine 10/02/22 10:41 Consult Nephrology Routine 10/04/22 09:02 Consult Urology Routine Ordered Studies 10/01/22 17:11 CT head/brain wo con Stat 10/01/22 19:19 CT Abd and Pelvis [CT abd pelvis IV con only] Urgent Hospital Course (1) Hyponatremia: Admitted with acute hyponatremia with encephalopathy, serum sodium was 110 Encephalopathy is now resolved Etiology of hyponatremia could be multi factorial, with diuretics and excess solute free intake contributing Goal of correction is not more than 7mmol/day Serum Na 130 today D/c home on salt tablets f/u with nephrology BMP on friday (2) Hypertension: BP is under fair control, add malodipine Discontinue HCTZ and triamterene on discharge (3) Urinary retention: secondary to BPH Failed voiding trial yesterday, hsieh was reinserted Urology on consult, for outpatient cystoscopy continue flomax and finasteride (4) BPH (benign prostatic hyperplasia): Continue flomax and finasteride (5) Chronic kidney disease, stage 3a: solitary kidney s/p nephrectomy for transitional cell ca (6) Severe sleep apnea: (7) Prediabetes: (8) Solitary right kidney: (9) Hyperlipidemia: (10) Depression with anxiety: Plan continue to monitor, hopefully d/c when serum sodium normalises Total Time Total Time Spent Total Time Spent (In Minutes): 35 Discharge Plan Discharge Items Patient Disposition: Home - Self-Care Reason For Visit: UNABLE TO VOID, CONFUSION Discharge Diagnosis: Hyponatremia Activity: Resume your previous activity Non-emergency contact: Primary Care Provider and Medical Technologist Microbiology Call non-emergency contact if: you have any medication questions Follow-up/Referrals: Dhruv Rose DO [Primary Care Provider] - 10/09/22 12:00 pm Diet: Regular Ambulatory Orders: Basic Metabolic Panel (Routine) Timeframe: 2 Days Location: Determined by Patient Ordered By: Trey Tucker Addtl Attending Provider Instructions: please make appointment to follow up with nephrology in 1 week and also Urology Pending Studies at Discharge: No Stand-Alone Forms: My [employer], Smoking Cessation Medications and DC Order Prescriptions: New amlodipine [Norvasc] 5 mg Tablet 2.5 mg PO QAM 30 Days Qty: 15 0RF sodium chloride 1,000 mg Tablet,Soluble 2 g PO TID 10 Days Qty: 60 0RF Continued finasteride 5 mg tablet 5 mg PO DAILY Qty: 30 11RF atenolol 25 mg tablet 25 mg PO DAILY Qty: 90 3RF fluoxetine 20 mg capsule 20 mg PO DAILY Qty: 90 3RF simvastatin 20 mg tablet 20 mg PO DAILY Qty: 90 3RF buspirone 10 mg tablet 10 mg PO TID PRN (Reason: anxiety) Qty: 270 3RF losartan 100 mg tablet 100 mg PO DAILY Qty: 90 3RF tamsulosin 0.4 mg capsule 0.4 mg PO HS Qty: 90 3RF cholecalciferol (vitamin D3) 125 mcg (5,000 unit) capsule 125 mcg PO DAILY Qty: 30 0RF Discontinued triamterene-hydrochlorothiazid 37.5-25 mg tablet 0.5 tab PO DAILY Qty: 30 11RF Discharge Orders: Discharge Order (Routine); Ordered 10/05/22 Ordered By: Trey Tucker Admission Data Admit Date/Time: 10/01/22 18:50 Attending Provider: Trey Tucker Admit Provider: Rommel Hauser Primary Care Provider: Dhruv Rose Other Providers: Rommel Hauser ; Edmar Ambrocio ; Rio Garner ; Eric Grove ; Johnie Martinez ; Javon Hogue ; April Castro ; Rio Chou ; Azalea Tadeo ; Camilla Jessica ; Aurelio Hatch ; Celia Marin ; Lashawn Mei ; Jelani Sanchez ; Elliot Freeman Coding Level of Care Code 10102 INP/OBS DISCH >30 MIN Diagnoses Hyponatremia E87.1 Hypertension I10 Urinary retention R33.9 BPH (benign prostatic hyperplasia) N40.0 Chronic kidney disease, stage 3a N18.31 Severe sleep apnea G47.30 Prediabetes R73.03 Solitary right kidney Q60.0 Hyperlipidemia E78.5 Depression with anxiety F41.8 Time Spent (min) 35
== END 2022-10-05 16:36 | disposition home or self-care (01) | DRG 641 ==
LOC: ED 16:39 → SUATTDRO 18:50 → EDINP 18:50 → 1E 22:12 → 2S 10-04 07:21